=== PATIENT | male | born 1945 | race Caucasian/White ===

== ENCOUNTER 2019-02-03 15:28 | Emergency (ER) | payer OTHER, MEDICARE ==
[2019-02-03 15:51] VITALS: BP 136/62
--- NOTE | 2019-02-03 16:06 | ER Document Report ---
ED Medical Screen (RME) - General Chief Complaint: Testicular Swelling Stated Complaint: TESTICULAR PAIN Time Seen by Provider: 02/03/19 16:01 Primary Care Provider: SANCHO FROST PA [Primary Care Provider] - Follow up as needed Mode of Arrival: Ambulatory Information source: Patient Notes: 73-year-old male presented to ED for complaint of right testicular pain and swelling. He states he has had this pain for about 3 weeks but it is gotten worse. He went to the [place] [facility] today and they told him he had to come to the emergency right now to get this checked out that it was too brought back and swollen. The right testicle is about 3 times in size of the last. Patient is alert oriented respirations regular and unlabored speaking in full sentences. He states he is on pain medicine and blood pressure medicine as well as medicine for his anxiety and depression. I have greeted and performed a rapid initial assessment of this patient. A comprehensive ED assessment and evaluation of the patient, analysis of test results and completion of medical decision making process will be conducted by an additional ED providers. TRAVEL OUTSIDE OF THE [place] IN LAST 30 DAYS: No - Related Data Allergies/Adverse Reactions: milk [Milk] Allergy (Severe, Verified 02/03/19 15:41) wheat [Wheat] Allergy (Severe, Verified 02/03/19 15:41) Past Medical History - Past Medical History Cardiac Medical History: Reports: Hx Hypertension Denies: Hx Heart Attack Pulmonary Medical History: Denies: Hx Asthma Neurological Medical History: Denies: Hx Cerebrovascular Accident, Hx Seizures Renal/ Medical History: Denies: Hx Peritoneal Dialysis GI Medical History: Denies: Hx Hepatitis, Hx Hiatal Hernia, Hx Ulcer Psychiatric Medical History: Reports: Hx Anxiety, Hx Depression, Hx Post Traumatic Stress Disorder Infectious Medical History: Denies: Hx Hepatitis Past Surgical History: Reports: Hx Orthopedic Surgery. Denies: Hx Open Heart Surgery, Hx Pacemaker Physical Exam - Vital signs Vitals: Temp Pulse Resp BP Pulse Ox 97.6 F 61 14 136/62 H 100 02/03/19 15:50 02/03/19 15:50 02/03/19 15:50 02/03/19 15:50 02/03/19 15:50 Course - Vital Signs Vital signs: Temp Pulse Resp BP Pulse Ox 97.6 F 61 14 136/62 H 100 02/03/19 15:50 02/03/19 15:50 02/03/19 15:50 02/03/19 15:50 02/03/19 15:50 Doctor's Discharge - Discharge Referrals: SANCHO FROST PA [Primary Care Provider] - Follow up as needed
--- NOTE | 2019-02-03 18:33 | RADIOLOGY REPORT (SQ) ---
EXAM DESCRIPTION: U/S SCROTUM W/DOPPLER COMPLETED DATE/TIME: 02/03/2019 6:22 pm REASON FOR STUDY: Right scrotum 3 times the size of the left pain COMPARISON: None. TECHNIQUE: Static and realtime scott scale imaging of the scrotum and testes. Selected color Doppler and spectral images recorded to document blood flow. LIMITATIONS: None. FINDINGS: RIGHT: TESTICLE: Normal size. Normal echotexture. Normal blood flow. No mass. EPIDIDYMIS: Normal. HYDROCELE OR VARICOCELE: Large hydrocele. HERNIA OR EXTRA-TESTICULAR MASS: No. OTHER: No other significant finding. LEFT: TESTICLE: Normal size. Normal echotexture. Normal blood flow. No mass. EPIDIDYMIS: Normal. HYDROCELE OR VARICOCELE: Large hydrocele. HERNIA OR EXTRA-TESTICULAR MASS: No. OTHER: No other significant finding. IMPRESSION: Large bilateral hydroceles. TECHNICAL DOCUMENTATION: JOB ID: [id number] [employer]- All Rights Reserved Reading location - IP/workstation name: [email or web address]
[2019-02-03 19:11] LABS: APPEARANCE,URINE CLEAR; BILIRUBIN,URINE NEGATIVE (NEGATIVE); COLOR,URINE YELLOW; GLUCOSE, URINE NEGATIVE (NEGATIVE); KETONES,URINE NEGATIVE (NEGATIVE); LEUKOCYTE ESTERASE,URINE NEGATIVE (NEGATIVE); NITRITE,URINE NEGATIVE (NEGATIVE); PROTEIN,URINE NEGATIVE (NEGATIVE); URINE SPECIFIC GRAVITY 1.013; UROBILINOGEN,URINE NEGATIVE mg/dL (<2.0)
--- NOTE | 2019-02-03 19:23 | ER Document Report ---
Doctor's Note Notes: 02/03/19 19:22 I signed up to evaluate this patient. I did review this patient's chart, ultrasound results, and urinalysis. I was notified by nursing in the midst of evaluating this patient's work-up, that the patient was very upset about his weight. He stated that he could not drive after dark. He wanted to leave the department. I I asked that they tell him I would be with him in one moment, as I was discussing another patient. The patient told them he did not want to wait. He has no surgical emergency or sign of infection on his ultrasound. No overt signs of infection in his urine. I did not see, interview, nor personally examined the patient. He chose to leave AGAINST MEDICAL ADVICE prior to physician's evaluation.
== END 2019-02-03 19:27 | disposition left against medical advice (07) ==
LOC: ER 15:28
DX: N50.89 Other specified disorders of the male genital organs (principal); I10 Essential (primary) hypertension
CPT/HCPCS: 76870; 81001; 87086; 93976; 99284

== ENCOUNTER → 2019-10-22 | Outpatient (CLI) | payer OTHER ==
--- NOTE | 2019-10-22 15:23 | XCELERA REPORT ---
[address] [facility] [address] Lower Extremity Venous Evaluation Procedure: Color flow and duplex imaging bilaterally of the veins of the lower extremities as well as the Common Femoral veins. Right Sided Venous Evaluation Normal vessel filling wall to wall, compression and augmentation as well as Colour flow down to the infrageniculate veins. Left Sided Venous Evaluation Normal vessel filling wall to wall, compression and augmentation as well as Colour flow down to the infrageniculate veins. Interpretation Summary No duplex evidence of DVT or obstruction in the bilateral lower extremities. STAT Name: ANNA VACA Age: 74 yrs Gender: Male : 1945 Patient Status: Outpatient Patient Location: Study Date: 10/22/2019 01:44 PM Reason For Study: SWELLING Ordering Physician: CATHY CAMPOS Performed By: Rosa Gutierrez : CATHY CAMPOS > Karel Dumas
== END ==
LOC: SP 12:59
PROVIDERS: ATTEND Internal Medicine Hematology & Oncology
DX: C61 Malignant neoplasm of prostate (principal); R60.0 Localized edema
CPT/HCPCS: 93970

== ENCOUNTER 2019-12-06 18:31 | Inpatient (IN) | payer OTHER, MEDICARE ==
[2019-12-06 19:22] LABS: ABSOLUTE EOSINOPHILS # (AUTO) 0.2 10^3/uL (0.0-0.6); ABSOLUTE LYMPHOCYTES (AUTO) 1.2 10^3/uL (0.5-4.7); ABSOLUTE MONOCYTES (AUTO) 0.7 10^3/uL (0.1-1.4); ABSOLUTE NEUT (AUTO) 5.9 10^3/uL (1.7-8.2); BASOPHILS % (AUTO) 0.6 % (0-2); EOSINOPHILS % (AUTO) 2.9 % (0-6); HEMATOCRIT 35.5 % (37.9-51.0); HEMOGLOBIN 12.7 g/dL (13.5-17.0); LYMPHOCYTES % (AUTO) 14.5 % (13-45); MEAN CORPUSCULAR HEMOGLOBIN 30.4 pg (27.0-33.4); MEAN CORPUSCULAR HGB CONC 35.6 g/dL (32.0-36.0); MEAN CORPUSCULAR VOLUME 85 fl (80-97); MONOCYTES % (AUTO) 8.9 % (3-13); PLATELET COUNT 225 10^3/uL (150-450); RED BLOOD COUNT 4.17 10^6/uL (4.35-5.55); SEGMENTED NEUTROPHILS % (AUTO) 73.1 % (42-78); TOTAL CELLS COUNTED % (AUTO) 100 %; WHITE BLOOD COUNT 8.1 10^3/uL (4.0-10.5)
--- NOTE | 2019-12-06 19:43 | RADIOLOGY REPORT (SQ) ---
EXAM DESCRIPTION: CHEST SINGLE VIEW COMPLETED DATE/TIME: 12/06/2019 6:27 pm REASON FOR STUDY: Weakness COMPARISON: 01/09/2013 EXAM PARAMETERS: NUMBER OF VIEWS: One view. TECHNIQUE: Single frontal radiographic view of the chest acquired. RADIATION DOSE: NA LIMITATIONS: None. FINDINGS: LUNGS AND PLEURA: Patchy retrocardiac opacity at the left lung base. No pleural effusion or pneumothorax. Lungs are hyperinflated. MEDIASTINUM AND HILAR STRUCTURES: No masses. Contour normal. HEART AND VASCULAR STRUCTURES: Heart normal in size. Normal vasculature. BONES: Sclerotic appearance of the proximal right humeral neck may represent enchondroma. Postoperat jairo changes of the right clavicle. HARDWARE: None in the chest. OTHER: No other significant finding. IMPRESSION: Patchy opacity in the retrocardiac region left lower lobe may represent atelectasis or i nfectious/ inflammatory process. TECHNICAL DOCUMENTATION: JOB ID: [id number] [employer]- All Rights Reserved Reading location - IP/workstation name: [email or web address]
[2019-12-06 19:48] LABS: ALBUMIN 3.9 g/dL (3.5-5.0); ALKALINE PHOSPHATASE 114 U/L (38-126); ANION GAP 12 (5-19); ASPARTATE AMINO TRANSFERASE 22 U/L (17-59); BILIRUBIN,TOTAL 1.4 mg/dL (0.2-1.3); BLOOD UREA NITROGEN 22 mg/dL (7-20); CALCIUM 9.3 mg/dL (8.4-10.2); CARBON DIOXIDE 28 mmol/L (22-30); CHLORIDE 99 mmol/L (98-107); CREATINE KINASE 92 U/L (55-170); GLUCOSE 109 mg/dL (75-110); POTASSIUM 3.7 mmol/L (3.6-5.0); TOTAL PROTEIN 7.1 g/dL (6.3-8.2)
[2019-12-06 19:59] LABS: CREATINE KINASE MB 2.77 ng/mL (<4.55)
[2019-12-06 20:18] LABS: TROPONIN I 0.137 ng/mL
--- NOTE | 2019-12-06 21:32 | EKG REPORT ---
SEVERITY:- ABNORMAL ECG - SINUS TACHYCARDIA REPOLARIZATION ABNORMALITY, PROB RATE RELATED : Confirmed by: Chetan Rodrigues MD 06-Dec-2019 21:32:13
[2019-12-06 21:48] LABS: APPEARANCE,URINE CLOUDY; BILIRUBIN,URINE NEGATIVE (NEGATIVE); COLOR,URINE YELLOW; GLUCOSE, URINE NEGATIVE (NEGATIVE); KETONES,URINE NEGATIVE (NEGATIVE); LEUKOCYTE ESTERASE,URINE LARGE (NEGATIVE); NITRITE,URINE NEGATIVE (NEGATIVE); PROTEIN,URINE 30 mg/dL (NEGATIVE); URINE SPECIFIC GRAVITY 1.013; UROBILINOGEN,URINE NEGATIVE mg/dL (<2.0)
[2019-12-06] MEDS ORDERED: CEFTRIAXONE INJ 1000 MG VIAL IV ONE (22:08)
[2019-12-06] MEDS ORDERED: NORMAL SALINE 1000 ML 1,000 ML IV ONE (22:09)
--- NOTE | 2019-12-06 22:10 | ER Document Report ---
ED General - General Chief Complaint: General Weakness Stated Complaint: DEHYDRATION Time Seen by Provider: 12/06/19 18:40 Primary Care Provider: CATHY CAMPOS MD [Primary Care Provider] - Follow up as needed Notes: 74-year-old man presents to the emergency department with a history of weakness today apparently he fell when getting out of his car because he was weak. EMS was called to the scene earlier today and the patient refused to be transported. Apparently the EMS captain went to the home saw the patient and later called EMS back to transport him because he was having increased weakness and appeared to be dehydrated. The patient notes that he has been having some dysuria for approximately 1 week. He has an appointment scheduled with the outpatient [place] clinic on Saturday. He denies fever, chills, nausea vomiting or diarrhea. TRAVEL OUTSIDE OF THE [place] IN LAST 30 DAYS: No - Related Data Allergies/Adverse Reactions: milk [Milk] Allergy (Severe, Verified 02/03/19 15:41) wheat [Wheat] Allergy (Severe, Verified 02/03/19 15:41) Past Medical History - Social History Smoking Status: Never Smoker Family History: Reviewed & Not Pertinent, Other Patient has suicidal ideation: No Patient has homicidal ideation: No - Past Medical History Cardiac Medical History: Reports: Hx Hypertension Denies: Hx Heart Attack Pulmonary Medical History: Denies: Hx Asthma Neurological Medical History: Denies: Hx Cerebrovascular Accident, Hx Seizures Renal/ Medical History: Denies: Hx Peritoneal Dialysis GI Medical History: Denies: Hx Hepatitis, Hx Hiatal Hernia, Hx Ulcer Psychiatric Medical History: Reports: Hx Anxiety, Hx Depression, Hx Post Traumatic Stress Disorder Infectious Medical History: Denies: Hx Hepatitis Past Surgical History: Reports: Hx Orthopedic Surgery. Denies: Hx Open Heart Surgery, Hx Pacemaker Review of Systems - Review of Systems Notes: Constitutional: + Generalized weakness HENT: Negative for sore throat. Eyes: Negative for visual changes. Cardiovascular: Negative for chest pain. Respiratory: Negative for shortness of breath. Gastrointestinal: Negative for abdominal pain, vomiting or diarrhea. Genitourinary: + Dysuria. Musculoskeletal: Negative for back pain. Skin: Negative for rash. Neurological: Negative for headaches, weakness or numbness. 10 point ROS negative except as marked above and in HPI. Physical Exam - Vital signs Vitals: Resp Pulse Ox 14 99 12/06/19 18:44 12/06/19 18:44 - Notes Notes: PHYSICAL EXAMINATION: Physical Exam: General: Dry appearing 74-year-old man lips are parched with drying of the mucosa. HEENT: NC/AT, pupils equal round and reactive to light, MM moist,nares clear, oropharynx clear, airway patent Neck: supple, no adenopathy, no masses. Good range of motion Lungs: clear, no wheezing, no rales no rhonchi CVS: Regular rate and rhythm no murmur gallop or rub Abdomen: Soft, active, nontender, no masses, no hepatosplenomegaly Ext: No edema, clubbing or cyanosis. Neuro: Alert and responsive, moving all 4 extremities on command, cranial nerves intact, no focal findings Skin: Intact no open lesions, no rash PSYCH: Normal mood, normal affect. Course - Re-evaluation Re-evalutation: 12/06/19 22:12 I discussed patient's findings with him, UTI with urine which shows increased WBCs, large leukocyte esterase and trace bacteria. Coupled with his dysuria and weakness dehydration he is given IV fluids IV antibiotics and discussed admission to the hospital the patient's troponin was noted to be elevated at 0.125. Patient denies chest pain or symptoms of cardiac disease. blood 12/07/19 01:04 Discussed the patient with the hospitalist, Dr. Pearce, he will admit the patient to the hospital for further evaluation and treatment. Of note the patient troponin continued to rise on the second draw. I discussed with the patient our concerns regarding possible cardiac event. The patient notes he is not interested in being transferred to a another facility or having cardiac intervention. He is hopeful that he can be treated and discharged from the hospital[facility] 12/07/19 01:07 - Vital Signs Vital signs: Temp Pulse Resp BP Pulse Ox 97.7 F 21 H 87/50 L 95 12/06/19 19:15 12/07/19 00:01 12/07/19 00:01 12/07/19 00:01 - Laboratory Result Diagrams: 12/06/19 18:50 12/06/19 18:50 Laboratory results interpreted by me: 12/06/19 12/06/19 12/06/19 18:50 18:50 21:25 RBC 4.17 L Hgb 12.7 L Hct 35.5 L BUN 22 H Total Bilirubin 1.4 H Urine Protein 30 H Urine Blood SMALL H Ur Leukocyte Esterase LARGE H Discharge - Discharge Clinical Impression: Dehydration, Elevated troponin I level, Generalized weakness Urinary tract infection Qualifiers: Urinary tract infection type: site unspecified Hematuria presence: without hematuria Qualified Code(s): N39.0 - Urinary tract infection, site not specified Condition: Good Disposition: ADMITTED INPATIENT Admitting Provider: Portia (Hospitalist) Unit Admitted: Medical Floor Referrals: CATHY CAMPOS MD [Primary Care Provider] - Follow up as needed
[2019-12-07] MEDS ORDERED: ASPIRIN 81 MG TABLET, CHEWABLE PO ONE (00:44)
[2019-12-07] MEDS ORDERED: ENOXAPARIN SODIUM INJ 120 MG/0.8 ML DISP.SYRIN SUBCUT ONE (00:48)
[2019-12-07] MEDS ORDERED: PROMETHAZINE HCL INJ 25 MG/1 ML VIAL IV PRN (02:34)
[2019-12-07] MEDS ORDERED: NORMAL SALINE 1000 ML 1,000 ML IV PRN (02:34)
[2019-12-07] MEDS ORDERED: MAGNESIUM HYDROXIDE SUSP 30 ML UDCUP PO PRN (02:34)
[2019-12-07] MEDS ORDERED: ACETAMINOPHEN 325 MG TABLET PO PRN (02:34)
[2019-12-07] MEDS ORDERED: MAG HYDROX/AL HYDROX/SIMETH SUSP 30 ML UDCUP PO PRN (02:34)
--- NOTE | 2019-12-07 02:34 | PDOC H&P ---
History of Present Illness Admission Date/PCP: 12/07/19 01:14 CHIQUIS BOOTH Patient complains of: Weakness and dehydration History of Present Illness: ANNA VACA is a 74 year old male with a history of prostate cancer and hypertension who fell while getting out of his car today. He has had falls in the past resulting in multiple fractures including his back. He was recently diagnosed with prostate cancer. EMS was called and his evaluation in the emergency department was significant for a urinalysis suggestive of infection. He has a coccyx ulcer as well as a pressure area on the right heel. His cardiac enzymes are minimally elevated as well. He is quite weak and will be admitted for ongoing monitoring of his troponins, treatment of his ulcers and pressure areas and pain control. Past Medical History Cardiac Medical History: Reports: Hypertension Denies: Myocardial Infarction Pulmonary Medical History: Denies: Asthma Neurological Medical History: Denies: Seizures GI Medical History: Denies: Hepatitis, Hiatal Hernia Psychiatric Medical History: Reports: Depression, Post Traumatic Stress Disorder Hematology: Denies: Anemia, Sickle Cell Disease Past Surgical History Past Surgical History: Reports: Orthopedic Surgery Denies: Pacemaker Social History Information Source: Patient Lives with: Alone Smoking Status: Never Smoker Electronic Cigarette use?: No Frequency of Alcohol Use: None Hx Recreational Drug Use: No Hx Prescription Drug Abuse: No - Advance Directive Resuscitation Status: Full Code Family History Family History: Reviewed & Not Pertinent, Other Parental Family History Reviewed: Yes Children Family History Reviewed: Yes Sibling(s) Family History Reviewed.: Yes Medication/Allergy Home Medications: Acetaminophen with Codeine [Tylenol #3 Tablet] 1 each PO PRN 06/26/12 Alprazolam [Xanax 0.5 Mg Tablet] 0.5 mg PO PRN 06/26/12 Herbal Meds 06/26/12 Diazepam [Valium 5 mg Tablet] 5 mg PO QIDP PRN #12 tablet 03/10/16 Hydrocodone/Acetaminophen [[place] 5-325 mg Tablet] 1 tab PO Q6HP PRN #12 tablet 03/10/16 Allergies/Adverse Reactions: milk [Milk] Allergy (Severe, Verified 02/03/19 15:41) wheat [Wheat] Allergy (Severe, Verified 02/03/19 15:41) Review of Systems All systems: reviewed and no additional remarkable complaints except as stated Ears: PRESENT: hearing changes Cardiovascular: PRESENT: edema Genitourinary: PRESENT: dysuria Integumentary: PRESENT: other - Coccyx and right heel Neurological: PRESENT: weakness Physical Exam Vital Signs: Temp Pulse Resp BP Pulse Ox 97.7 F 21 H 87/50 L 95 12/06/19 19:15 12/07/19 00:01 12/07/19 00:01 12/07/19 00:01 Intake & Output 12/05/19 12/06/19 12/07/19 05:59 06:59 06:59 Intake Total 1000 Balance 1000 Weight 117.027 kg General appearance: PRESENT: cooperative, mild distress, well-developed Head exam: PRESENT: atraumatic, normocephalic Eye exam: PRESENT: conjunctiva pink, EOMI. ABSENT: scleral icterus Ear exam: PRESENT: normal external ear exam, other - Hearing aids. ABSENT: bleeding, drainage Mouth exam: PRESENT: dry mucosa, tongue midline Neck exam: ABSENT: carotid bruit, JVD, lymphadenopathy Respiratory exam: PRESENT: clear to auscultation [place], symmetrical, unlabored. ABSENT: accessory muscle use, prolonged expiratory phas, rales, rhonchi, tachypnea, wheezes Cardiovascular exam: PRESENT: RRR, +S1, +S2, systolic murmur - 1/6 GI/Abdominal exam: PRESENT: normal bowel sounds, soft. ABSENT: distended, g uarding, mass, tenderness Rectal exam: PRESENT: deferred Gentrourinary exam: ABSENT: indwelling catheter Extremities exam: PRESENT: pedal edema, +2 edema Musculoskeletal exam: PRESENT: other - Edema bilateral legs. ABSENT: deformity Neurological exam: PRESENT: alert, awake, oriented to person, oriented to place, oriented to time, oriented to situation, CN II-XII grossly intact - Except hearing loss Psychiatric exam: PRESENT: anxious, appropriate affect. ABSENT: agitated Focused psych exam: ABSENT: delusional, paranoid, restlessness Skin exam: PRESENT: vesicles - Bullous lesion from pressure right heel, other - Coccyx ulcer Results Laboratory Results: 12/06/19 18:50 12/06/19 18:50 12/06/19 12/06/19 12/06/19 18:50 18:50 21:25 WBC 8.1 RBC 4.17 L Hgb 12.7 L Hct 35.5 L MCV 85 MCH 30.4 MCHC 35.6 RDW 14.0 Plt Count 225 Seg Neutrophils % 73.1 Sodium 138.8 Potassium 3.7 Chloride 99 Carbon Dioxide 28 Anion Gap 12 BUN 22 H Creatinine 1.02 Est GFR ( Amer) > 60 Glucose 109 Calcium 9.3 Total Bilirubin 1.4 H AST 22 Alkaline Phosphatase 114 Total Protein 7.1 Albumin 3.9 Urine Color YELLOW Urine Appearance CLOUDY Urine pH 8.0 Ur Specific [place] 1.013 Urine Protein 30 H Urine Glucose (UA) NEGATIVE Urine Ketones NEGATIVE Urine Blood SMALL H Urine Nitrite NEGATIVE Ur Leukocyte Esterase LARGE H Urine WBC (Auto) 88 Urine RBC (Auto) 2 12/06/19 12/06/19 12/06/19 18:50 18:50 22:46 Creatine Kinase 92 CK-MB (CK-2) 2.77 Troponin I 0.137 0.280 Impressions: Chest X-Ray 12/06/19 18:50 IMPRESSION: Patchy opacity in the retrocardiac region left lower lobe may represent atelectasis or infectious/ inflammatory process. Assessment and Plan - Diagnosis (1) Urinary tract infection Qualifiers: Urinary tract infection type: site unspecified Hematuria presence: without hematuria Qualified Code(s): N39.0 - Urinary tract infection, site not specif ied Is this a current diagnosis for this admission?: Yes Plan: 12/07/2019 Urine submitted for culture. Broad-spectrum antibiotics ordered. (2) Pressure ulcer of coccygeal region Qualifiers: Pressure injury stage: unspecified pressure injury stage Qualified Code(s): L89.159 - Pressure ulcer of sacral region, unspecified stage Is this a current diagnosis for this admission?: Yes Plan: 12/07/2019 Did not get a very good look at the coccyx ulcer. I have asked that the wound care center be contacted to come and assess the coccyx area and the right heel. We will need to offload him frequently. (3) Pressure ulcer of right heel, unstageable Is this a current diagnosis for this admission?: Yes Plan: 12/07/2019 The patient has a classic blister on the heel with dark fluid consistent with a pressure injury. I will defer to the wound care team as to whether we should unroofed the area and trim the callused skin which will give us access to the wo und bed and likely more options for treatment versus conservative therapy. I have asked him to elevate his right leg when possible. (4) Lower extremity edema Is this a current diagnosis for this admission?: Yes Plan: 12/07/2019 This has been chronic. [facility] states that they have order him compression stockings in a machine to help with the edema. (5) Hypertension Qualifiers: Hypertension type: essential hypertension Qualified Code(s): I10 - Essential (primary) hypertension Is this a current diagnosis for this admission?: Yes Plan: 12/07/2019 Blood pressure was actually on the low side initially. This is likely due to some dehydration and poor intake. Will order antihypertensive medications from his home regimen with parameters. (6) Prostate cancer Is this a current diagnosis for this admission?: Yes Plan: 12/07/2019 Continue Zytiga and Flomax (7) Depression Qualifiers: Depression Type: major depressive disorder Psychotic features: without psychotic features Is this a current diagnosis for this admission?: Yes Plan: 12/07/2019 Continue Prozac as well as the as needed Zyprexa. (8) Dehydration Is this a current diagnosis for this admission?: Yes Plan: 12/07/2019 We will give IV fluids gently. We will also encourage p.o. liquids. (9) Elevated troponin I level Is this a current diagnosis for this admission?: Yes Plan: 06/01/2020 Continue to track troponins. It is certainly possible that these are related to the heart muscle but he has never had any cardiac issues. We will continue to monitor the patient on telemetry as well. (10) Generalized weakness Is this a current diagnosis for this admission?: Yes Plan: 12/07/2019 Secondary to infection and poor volume intake. IV fluids, control of his pain and the antibiotics should help. I did ask physical therapy to see the patient as well. - Time Time Spent with patient: 35 or more minutes Medications reviewed and adjusted accordingly: Yes Anticipated discharge: Other - He may need home health with therapy and to assist with the wound care. - Inpatient Certification Based on my medical assessment, after consideration of the patient's comorbidities, presenting symptoms, or acuity I expect that the services needed warrant INPATIENT care.: Yes I certify that my determination is in accordance with my understanding of Medicare's requirements for reasonable and necessary INPATIENT services [42 CFR 412.3e].: Yes Medical Necessity: Need For IV Fluids, Need For Continuous Telemetry Monitoring, Need for IV Antibiotics Post Hospital Care: D/C Nurse Navigator Documentation
[2019-12-07] MEDS ORDERED: METHOCARBAMOL 500 MG TABLET PO PRN (02:41)
[2019-12-07] MEDS ORDERED: OLANZAPINE 2.5 MG TABLET PO PRN ×2 (02:41→10:24)
[2019-12-07] MEDS ORDERED: PHARMACY COMMUNICATION ORDER MC NR (03:00)
[2019-12-07] MEDS ORDERED: DIAZEPAM 5 MG TABLET PO PRN (03:57)
[2019-12-07] MEDS ORDERED: MORPHINE SULFATE 10 MG/ML INJ IV PRN (03:57)
[2019-12-07] MEDS ORDERED: MORPHINE SULFATE 10 MG/ML INJ IV ONE (05:00)
[2019-12-07] MEDS: OXYCODONE HCL IR 5 MG TABLET PO PRN (05:02)
[2019-12-07] MEDS: PANTOPRAZOLE SODIUM 20 MG TABLET.DR PO SCH (07:41)
[2019-12-07] MEDS ORDERED: POTASSIUM CHLORIDE 10 MEQ TABLET.ER PO ONE (09:30)
[2019-12-07 10:42] LABS: ANION GAP 6 (5-19); BLOOD UREA NITROGEN 17 mg/dL (7-20); CALCIUM 8.3 mg/dL (8.4-10.2); CARBON DIOXIDE 30 mmol/L (22-30); CHLORIDE 104 mmol/L (98-107); GLUCOSE 84 mg/dL (75-110); POTASSIUM 3.2 mmol/L (3.6-5.0)
[2019-12-07] MEDS: CHOLECALCIFEROL (D3) 1,000 UNIT (25 MCG) TABLET PO SCH (11:10)
[2019-12-07] MEDS: METOPROLOL SUCCINATE 25 MG TAB.SR.24H PO SCH (11:10)
[2019-12-07] MEDS: FUROSEMIDE 40 MG TABLET PO SCH (11:10)
[2019-12-07] MEDS: HYDROCHLOROTHIAZIDE 25 MG TABLET PO SCH (11:11)
[2019-12-07] MEDS: FLUOXETINE HCL 20 MG CAPSULE PO SCH (11:11)
[2019-12-07] MEDS: DOCUSATE SODIUM 100 MG CAPSULE PO SCH ×2 (11:11→17:23)
[2019-12-07] MEDS: PREDNISONE 5 MG TABLET PO SCH (11:11)
[2019-12-07] MEDS: ENOXAPARIN SODIUM INJ 40 MG/0.4 ML DISP.SYRIN SUBCUT SCH (11:11)
[2019-12-07] MEDS ORDERED: INFLUENZA QUAD (6MOS+) 2019-20 VAC 0.5 ML SYR IM ONE (12:01)
[2019-12-07] MEDS: TAMSULOSIN HCL 0.4 MG CAP.SR.24H PO SCH (17:23)
[2019-12-07] MEDS: CEFTRIAXONE 1 GM/D5W RTU 1 GM/50 ML RTUPB IV SCH (21:45)
[2019-12-07] MEDS: MELATONIN 5 MG TABLET PO SCH (21:45)
[2019-12-08] MEDS: OXYCODONE HCL IR 5 MG TABLET PO PRN ×2 (03:05→16:27)
[2019-12-08] MEDS: PANTOPRAZOLE SODIUM 20 MG TABLET.DR PO SCH (05:42)
[2019-12-08] MEDS: HYDROCHLOROTHIAZIDE 25 MG TABLET PO SCH (09:56)
[2019-12-08] MEDS: FLUOXETINE HCL 20 MG CAPSULE PO SCH (09:57)
[2019-12-08] MEDS: METOPROLOL SUCCINATE 25 MG TAB.SR.24H PO SCH (09:57)
[2019-12-08] MEDS: DOCUSATE SODIUM 100 MG CAPSULE PO SCH ×2 (09:57→17:09)
[2019-12-08] MEDS: CHOLECALCIFEROL (D3) 1,000 UNIT (25 MCG) TABLET PO SCH (09:57)
[2019-12-08] MEDS: FUROSEMIDE 40 MG TABLET PO SCH (09:58)
[2019-12-08] MEDS: PREDNISONE 5 MG TABLET PO SCH (09:58)
[2019-12-08] MEDS: ENOXAPARIN SODIUM INJ 40 MG/0.4 ML DISP.SYRIN SUBCUT SCH (09:58)
[2019-12-08] MEDS: TAMSULOSIN HCL 0.4 MG CAP.SR.24H PO SCH (17:09)
--- NOTE | 2019-12-08 20:00 | PDOC PROGRESS REPORT ---
Subjective Reason For Visit: DEHYDRATION,URINARY TRACT INFECTION,RIGHT HEEL Physical Exam Vital Signs: Temp Pulse Resp BP Pulse Ox 98.5 F 58 L 14 130/60 H 100 12/08/19 16:18 12/08/19 16:18 12/08/19 16:18 12/08/19 16:18 12/08/19 16:18 Intake & Output 12/07/19 12/08/19 12/09/19 06:59 06:59 06:59 Intake Total 1000 1130 530 Output Total 1050 600 Balance 1000 80 -70 Weight 113.3 kg 113.3 kg Results Laboratory Results: 12/06/19 18:50 12/07/19 09:40 12/06/19 12/06/19 12/06/19 18:50 18:50 22:46 Creatine Kinase 92 CK-MB (CK-2) 2.77 Troponin I 0.137 0.280 12/07/19 02:52 Creatine Kinase CK-MB (CK-2) Troponin I 0.475 Impressions: Chest X-Ray 12/06/19 18:50 IMPRESSION: Patchy opacity in the retrocardiac region left lower lobe may represent atelectasis or infectious/ inflammatory process. Assessment and Plan - Diagnosis (1) Dehydration Is this a current diagnosis for this admission?: Yes Plan: Resolved (2) Pressure ulcer of coccygeal region Qualifiers: Pressure injury stage: unspecified pressure injury stage Qualified Code(s): L89.159 - Pressure ulcer of sacral region, unspecified stage Is this a current diagnosis for this admission?: Yes Plan: We will give him a referral to the wound center as an outpatient (3) Pressure ulcer of right heel, unstageable Is this a current diagnosis for this admission?: Yes Plan: This actually looks more like a large bruise on his heel, there is no overlying eschar that I saw, it almost looks like he stepped on something and bruised it (4) Prostate cancer Is this a current diagnosis for this admission?: Yes Plan: 12/07/2019 Continue Zytiga and Flomax (5) Urinary tract infection Qualifiers: Urinary tract infection type: site unspecified Hematuria presence: without hematuria Qualified Code(s): N39.0 - Urinary tract infection, site not specified Is this a current diagnosis for this admission?: Yes Plan: Currently on Rocephin, urine culture is pending. Once we get the susceptibilities we may be able to discharge him home. - Time Time Spent with patient: 15-24 minutes
[2019-12-08] MEDS: ZYTIGA PO SCH (20:19)
[2019-12-08] MEDS: MELATONIN 5 MG TABLET PO SCH (21:34)
[2019-12-08] MEDS: CEFTRIAXONE 1 GM/D5W RTU 1 GM/50 ML RTUPB IV SCH (21:34)
[2019-12-09] MEDS: PANTOPRAZOLE SODIUM 20 MG TABLET.DR PO SCH (06:10)
[2019-12-09] MEDS: OXYCODONE HCL IR 5 MG TABLET PO PRN (07:55)
[2019-12-09] MEDS: DOCUSATE SODIUM 100 MG CAPSULE PO SCH (10:02)
[2019-12-09] MEDS: ZYTIGA PO SCH (10:02)
[2019-12-09] MEDS: FLUOXETINE HCL 20 MG CAPSULE PO SCH (10:02)
[2019-12-09] MEDS: METOPROLOL SUCCINATE 25 MG TAB.SR.24H PO SCH (10:03)
[2019-12-09] MEDS: PREDNISONE 5 MG TABLET PO SCH (10:03)
[2019-12-09] MEDS: HYDROCHLOROTHIAZIDE 25 MG TABLET PO SCH (10:03)
[2019-12-09] MEDS: FUROSEMIDE 40 MG TABLET PO SCH (10:04)
[2019-12-09] MEDS: CHOLECALCIFEROL (D3) 1,000 UNIT (25 MCG) TABLET PO SCH (10:04)
[2019-12-09] MEDS: ENOXAPARIN SODIUM INJ 40 MG/0.4 ML DISP.SYRIN SUBCUT SCH (10:05)
[2019-12-09 10:16] VITALS: BP 143/53
--- NOTE | 2019-12-09 19:01 | PDOC DISCHARGE SUMMARY ---
Impression - Admit/DC Date/PCP Admission Date/Primary Care Provider: 12/07/19 01:14 CHIQUIS BOOTH Discharge Date: 12/09/19 - Discharge Diagnosis (1) Dehydration Is this a current diagnosis for this admission?: Yes (2) Pressure ulcer of coccygeal region Is this a current diagnosis for this admission?: Yes (3) Pressure ulcer of right heel, unstageable Is this a current diagnosis for this admission?: Yes (4) Prostate cancer Is this a current diagnosis for this admission?: Yes (5) Urinary tract infection Is this a current diagnosis for this admission?: Yes - Additional Information Resuscitation Status: Full Code Discharge Diet: Cardiac Discharge Activity: Balance Activity w/Rest, Supervised Activity Referrals: WOUND CARE [Outside] (PT NEEDS A REFERRAL TO THE WOUND CARE CLINIC FOR NEXT WEEK) CLINIC,[facility] [NO LOCAL MD] - 12/09/19 11:30 am (PT NEEDS REFERRAL FOR THE WOUND CARE CLINIC PT HAS MULTIPLE APPTS DECEMBER 09 2019 @ [address] [place] [address] ) Prescriptions: Cephalexin Monohydrate [Keflex 500 mg Capsule] 500 mg PO TID #21 capsule Home Medications: Abiraterone Acetate [Zytiga] 1,000 mg PO DAILY 12/07/19 Cholecalciferol (Vitamin D3) [Vitamin D3 1000 Unit Tablet] 1,000 unit PO DAILY 12/07/19 Fluoxetine HCl [Prozac 20 mg Capsule] 40 mg PO DAILY 12/07/19 Furosemide [Lasix 40 mg Tablet] 40 mg PO DAILY 12/07/19 Melatonin/Pyridoxine [Melatonin 5 mg Tablet] 5 mg PO QHS 12/07/19 Methocarbamol [Robaxin 500 mg Tablet] 500 mg PO TIDP PRN 12/07/19 Metoprolol Succinate [Toprol Xl 25 mg Tab.sr] 12.5 mg PO DAILY 12/07/19 Olanzapine [Zyprexa] 1.25 mg PO BIDP PRN 12/07/19 Omeprazole 20 mg PO DAILY 12/07/19 Prednisone [Deltasone 5 mg Tablet] 5 mg PO DAILY 12/07/19 Sennosides/Docusate Sodium [Senna Plus 8.6-50 mg Tablet] 2 each PO DAILYP PRN 12/07/19 Tamsulosin HCl [Flomax] 0.4 mg PO DAILY 12/07/19 Cephalexin Monohydrate [Keflex 500 mg Capsule] 500 mg PO TID #21 capsule 12/09/19 History of Present Illiness History of Present Illness: ANNA VACA is a 74 year old male with a history of prostate cancer and hypertension who fell while getting out of his car today. He has had falls in the past resulting in multiple fractures including his back. He was recently diagnosed with prostate cancer. EMS was called and his evaluation in the emergency department was significant for a urinalysis suggestive of infection. He has a coccyx ulcer as well as a pressure area on the right heel. His cardiac enzymes are minimally elevated as well. He is quite weak and will be admitted for ongoing monitoring of his troponins, treatment of his ulcers and pressure areas and pain control. Hospital Course Hospital Course: He improved with some antibiotics and a little bit of IV fluids. He tends to retain fluid so we were cautious with his hydration. He was eating and drinking better. He is going to follow-up with the wound clinic for the wound on his sacrum. The wound on his right heel is either a suspected deep tissue injury, or it looks like it could be an old bruise from where he may have stepped on something. He does deny having stepped on something that really hurt his heel. He will complete outpatient course of Keflex. He was refusing all nursing facility placement but he would let us do home health. We also encouraged him to use a walker but he did not want to use it. He has a stick that he made himself that he tries to get around with but we did strongly encouraged him to use the walker. His labs and examination were reassuring he was discharged in stable condition. Physical Exam Vital Signs: Temp Pulse Resp BP Pulse Ox 98.5 F 84 19 143/53 H 96 12/09/19 10:10 12/09/19 10:10 12/09/19 10:10 12/09/19 10:10 12/09/19 10:10 Intake & Output 12/08/19 12/09/19 12/10/19 06:59 06:59 06:59 Intake Total 1130 730 50 Output Total 1050 600 Balance 80 130 50 Weight 113.3 kg 115.5 kg General appearance: PRESENT: cooperative, mild distress, well-developed Respiratory exam: PRESENT: clear to auscultation namrata, symmetrical, unlabored. ABSENT: accessory muscle use, prolonged expiratory phas, rales, rhonchi, tachypnea, wheezes Cardiovascular exam: PRESENT: RRR, +S1, +S2, systolic murmur - 1/6 GI/Abdominal exam: PRESENT: normal bowel sounds, soft. ABSENT: distended, guarding, mass, tenderness Gentrourinary exam: ABSENT: indwelling catheter Extremities exam: PRESENT: pedal edema, +2 edema Musculoskeletal exam: PRESENT: other - Edema bilateral legs. ABSENT: deformity Neurological exam: PRESENT: alert, awake, oriented to person, oriented to place, oriented to time, oriented to situation Psychiatric exam: PRESENT: Appropriate affect Skin exam: PRESENT: vesicles - Bullous lesion from pressure right heel, other - Coccyx ulcer Results Laboratory Results: WBC 8.1 10^3/uL (4.0-10.5) 12/06/19 18:50 RBC 4.17 10^6/uL (4.35-5.55) L 12/06/19 18:50 Hgb 12.7 g/dL (13.5-17.0) L 12/06/19 18:50 Hct 35.5 % (37.9-51.0) L 12/06/19 18:50 MCV 85 fl (80-97) 12/06/19 18:50 MCH 30.4 pg (27.0-33.4) 12/06/19 18:50 MCHC 35.6 g/dL (32.0-36.0) 12/06/19 18:50 RDW 14.0 % (11.5-14.0) 12/06/19 18:50 Plt Count 225 10^3/uL (150-450) 12/06/19 18:50 Lymph % (Auto) 14.5 % (13-45) 12/06/19 18:50 [place] % (Auto) 8.9 % (3-13) 12/06/19 18:50 Eos % (Auto) 2.9 % (0-6) 12/06/19 18:50 Baso % (Auto) 0.6 % (0-2) 12/06/19 18:50 Absolute Neuts (auto) 5.9 10^3/uL (1.7-8.2) 12/06/19 18:50 Absolute Lymphs (auto) 1.2 10^3/uL (0.5-4.7) 12/06/19 18:50 Absolute Monos (auto) 0.7 10^3/uL (0.1-1.4) 12/06/19 18:50 Absolute Eos (auto) 0.2 10^3/uL (0.0-0.6) 12/06/19 18:50 Absolute Basos (auto) 0.0 10^3/uL (0.0-0.2) 12/06/19 18:50 Seg Neutrophils % 73.1 % (42-78) 12/06/19 18:50 Sodium 139.6 mmol/L (137-145) 12/07/19 09:40 Potassium 3.2 mmol/L (3.6-5.0) L 12/07/19 09:40 Chloride 104 mmol/L (98-107) 12/07/19 09:40 Carbon Dioxide 30 mmol/L (22-30) 12/07/19 09:40 Anion Gap 6 (5-19) 12/07/19 09:40 BUN 17 mg/dL (7-20) 12/07/19 09:40 Creatinine 0.70 mg/dL (0.52-1.25) 12/07/19 09:40 Est GFR ( Amer) > 60 (>60) 12/07/19 09:40 Est GFR (MDRD) Non-Af > 60 (>60) 12/07/19 09:40 Glucose 84 mg/dL (75-110) 12/07/19 09:40 Calcium 8.3 mg/dL (8.4-10.2) L 12/07/19 09:40 Total Bilirubin 1.4 mg/dL (0.2-1.3) H 12/06/19 18:50 Direct Bilirubin 0.0 mg/dL (0.0-0.4) 12/06/19 18:50 Neonat Total Bilirubin Not Reportable 12/06/19 18:50 Neonat Direct Bilirubin Not Reportable 12/06/19 18:50 Neonat Indirect Bili Not Reportable 12/06/19 18:50 AST 22 U/L (17-59) 12/06/19 18:50 ALT 15 U/L (<50) 12/06/19 18:50 Alkaline Phosphatase 114 U/L (38-126) 12/06/19 18:50 Creatine Kinase 92 U/L (55-170) 12/06/19 18:50 CK-MB (CK-2) 2.77 ng/mL (<4.55) 12/06/19 18:50 Troponin I 0.475 ng/mL 12/07/19 02:52 Total Protein 7.1 g/dL (6.3-8.2) 12/06/19 18:50 Albumin 3.9 g/dL (3.5-5.0) 12/06/19 18:50 Urine Color YELLOW 12/06/19 21:25 Urine Appearance CLOUDY 12/06/19 21:25 Urine pH 8.0 (5.0-9.0) 12/06/19 21:25 Ur Specific [place] 1.013 12/06/19 21:25 Urine Protein 30 mg/dL (NEGATIVE) H 12/06/19 21:25 Urine Glucose (UA) NEGATIVE mg/dL (NEGATIVE) 12/06/19 21:25 Urine Ketones NEGATIVE mg/dL (NEGATIVE) 12/06/19 21:25 Urine Blood SMALL (NEGATIVE) H 12/06/19 21:25 Urine Nitrite NEGATIVE (NEGATIVE) 12/06/19 21:25 Urine Bilirubin NEGATIVE (NEGATIVE) 12/06/19 21:25 Urine Urobilinogen NEGATIVE mg/dL (<2.0) 12/06/19 21:25 Ur Leukocyte Esterase LARGE (NEGATIVE) H 12/06/19 21:25 Urine WBC (Auto) 88 /HPF 12/06/19 21:25 Urine RBC (Auto) 2 /HPF 12/06/19 21:25 Urine Bacteria (Auto) TRACE /HPF 12/06/19 21:25 Squamous Epi Cells Auto <1 /HPF 12/06/19 21:25 Urine Mucus (Auto) RARE /LPF 12/06/19 21:25 Urine Ascorbic Acid NEGATIVE (NEGATIVE) 12/06/19 21:25 12/06/19 12/06/19 12/07/19 18:50 22:46 02:52 CK-MB (CK-2) 2.77 Troponin I 0.137 0.280 0.475 Impressions: Chest X-Ray 12/06/19 18:50 IMPRESSION: Patchy opacity in the retrocardiac region left lower lobe may represent atelectasis or infectious/ inflammatory process. Plan Time Spent: Greater than 30 Minutes Stroke Is this a Stroke Patient?: No Acute Heart Failure - Is this a Heart Failure Patient?: No
== END 2019-12-09 11:05 | disposition home health service (06) | DRG 690 ==
LOC: ER 18:31 → EH 12-07 01:14 → 5 12-07 03:43
PROVIDERS: ADMIT Hospitalist; ATTEND Hospitalist
DX: N39.0 Urinary tract infection, site not specified (principal); E86.0 Dehydration; L89.159 Pressure ulcer of sacral region, unspecified stage; L89.619 Pressure ulcer of right heel, unspecified stage; R79.89 Other specified abnormal findings of blood chemistry; C61 Malignant neoplasm of prostate; I10 Essential (primary) hypertension; R53.1 Weakness; F41.8 Other specified anxiety disorders; Z60.2 Problems related to living alone
CPT/HCPCS: 36415; 71045; 80048; 80053; 81001; 82550; 82553; 84484; 85025; 87040; 87086; 87088; 87186; 93005; 93010; 96361; 96365; 99285; J0696; J1650; J2270; J3490; J7030; J7512

== ENCOUNTER → 2020-03-09 | Outpatient (CLI) | payer MEDICARE ==
--- NOTE | 2020-03-09 19:16 | RADIOLOGY REPORT (SQ) ---
EXAM DESCRIPTION: VENOUS BILATERAL LOWER IMAGES COMPLETED DATE/TIME: 03/09/2020 6:39 pm REASON FOR STUDY: BLE PAIN/SWELLING PER GAVEL L97.828 NON-PRS CHRONIC ULCER OTH PRT L LOW LEG WITH OTH SEV L97.818 NON-PRS CHRONIC ULCER OTH PRT R LOW LEG WITH OTH SEV COMPARISON: None. TECHNIQUE: Dynamic and static scott scale and color images acquired of both lower extremity venous sy stems. Selected spectral images acquired with additional compression and augmentation maneuvers. Imag es stored on PACS. LIMITATIONS: None. FINDINGS: RIGHT LEG COMMON FEMORAL AND FEMORAL: Normal phasicity, compression and augmentation. No visualized echogenic m aterial on scott scale. No defects on color images. POPLITEAL: Normal compression and augmentation. No visualized echogenic material on scott scale. No de fects on color images. CALF VESSELS: Normal compression and augmentation. No visualized echogenic material on scott scale. No defects on color image. Peroneal veins not seen. GSV AND SSV: Normal compression. No visualized echogenic material on scott scale. No defects on color images. ANY DEEP VENOUS INSUFFICIENCY: Not evaluated. ANY EVIDENCE OF POPLITEAL CYST: No. OTHER: No other significant finding. LEFT LEG COMMON FEMORAL AND FEMORAL: Normal phasicity, compression and augmentation. No visualized echogenic m aterial on scott scale. No defects on color images. POPLITEAL: Normal compression and augmentation. No visualized echogenic material on scott scale. No de fects on color images. CALF VESSELS: Normal compression and augmentation. No visualized echogenic material on scott scale. No defects on color images. Peroneal veins not seen. GSV AND SSV: Normal compression. No visualized echogenic material on scott scale. No defects on color images. ANY DEEP VENOUS INSUFFICIENCY: Not evaluated. ANY EVIDENCE POPLITEAL CYST: No. OTHER: No other significant finding. IMPRESSION: NO EVIDENCE DVT OR SVT IN EITHER LEG. TECHNICAL DOCUMENTATION: JOB ID: [id number] 2010 [employer]- All Rights Reserved Reading location - IP/workstation name: [email or web address]
== END ==
LOC: SP 15:48
PROVIDERS: ATTEND Nurse Practitioner Family
DX: L97.222 Non-pressure chronic ulcer of left calf with fat layer exposed (principal); L97.212 Non-pressure chronic ulcer of right calf with fat layer exposed
CPT/HCPCS: 93970

== ENCOUNTER 2020-06-28 16:09 | Inpatient (IN) | payer OTHER, MEDICARE ==
[2020-06-28 17:16] LABS: VENOUS BLOOD BASE EXCESS 7.1 mmol/L; VENOUS BLOOD HCO3 34.2 mmol/L (20-32); VENOUS BLOOD PH 7.4 (7.30-7.42)
[2020-06-28 17:24] LABS: ABSOLUTE EOSINOPHILS # (AUTO) 0.6 10^3/uL (0.0-0.6); ABSOLUTE LYMPHOCYTES (AUTO) 1.4 10^3/uL (0.5-4.7); ABSOLUTE MONOCYTES (AUTO) 0.5 10^3/uL (0.1-1.4); ABSOLUTE NEUT (AUTO) 3.4 10^3/uL (1.7-8.2); BASOPHILS % (AUTO) 0.5 % (0-2); HEMATOCRIT 36.9 % (37.9-51.0); HEMOGLOBIN 12.9 g/dL (13.5-17.0); LYMPHOCYTES % (AUTO) 23.1 % (13-45); MEAN CORPUSCULAR HEMOGLOBIN 29.6 pg (27.0-33.4); MEAN CORPUSCULAR VOLUME 85 fl (80-97); MONOCYTES % (AUTO) 8.6 % (3-13); PLATELET COUNT 228 10^3/uL (150-450); RED BLOOD COUNT 4.36 10^6/uL (4.35-5.55); RED CELL DISTRIBUTION WIDTH 14.8 % (11.5-14.0); SEGMENTED NEUTROPHILS % (AUTO) 57.8 % (42-78); TOTAL CELLS COUNTED % (AUTO) 100 %
[2020-06-28 17:38] LABS: ALBUMIN 3.8 g/dL (3.5-5.0); ALKALINE PHOSPHATASE 115 U/L (38-126); ANION GAP 8 (5-19); ASPARTATE AMINO TRANSFERASE 32 U/L (17-59); BILIRUBIN,DIRECT 0.3 mg/dL (0.0-0.4); BILIRUBIN,TOTAL 1.4 mg/dL (0.2-1.3); BLOOD UREA NITROGEN 18 mg/dL (7-20); CALCIUM 9.1 mg/dL (8.4-10.2); CARBON DIOXIDE 33 mmol/L (22-30); CHLORIDE 99 mmol/L (98-107); GLUCOSE 101 mg/dL (75-110); POTASSIUM 3.6 mmol/L (3.6-5.0); TOTAL PROTEIN 7.2 g/dL (6.3-8.2)
--- NOTE | 2020-06-28 17:38 | RADIOLOGY REPORT (SQ) ---
EXAM DESCRIPTION: CHEST SINGLE VIEW IMAGES COMPLETED DATE/TIME: 06/28/2020 5:17 pm REASON FOR STUDY: wheezing COMPARISON: 12/06/2019 EXAM PARAMETERS: NUMBER OF VIEWS: One view. TECHNIQUE: Single frontal radiographic view of the chest acquired. RADIATION DOSE: NA LIMITATIONS: None. FINDINGS: LUNGS AND PLEURA: Left lower lobe airspace opacities. No pleural effusion. No pneumothor ax. MEDIASTINUM AND HILAR STRUCTURES: No masses. Contour normal. HEART AND VASCULAR STRUCTURES: Heart normal in size. Normal vasculature. BONES: No acute findings. HARDWARE: None in the chest. OTHER: No other significant finding. IMPRESSION: In the appropriate clinical setting, findings are consistent with left lower lobe pneumo maren. TECHNICAL DOCUMENTATION: JOB ID: [id number] 2010 [employer]- All Rights Reserved Reading location - IP/workstation name: [email or web address]
--- NOTE | 2020-06-28 17:41 | RADIOLOGY REPORT (SQ) ---
EXAM DESCRIPTION: CT HEAD WITHOUT IMAGES COMPLETED DATE/TIME: 06/28/2020 5:17 pm REASON FOR STUDY: weakness le COMPARISON: None. TECHNIQUE: Axial images acquired through the brain without intravenous contrast. Images reviewed wi th bone, brain and subdural windows. Additional sagittal and coronal reconstructions were generated. Images stored on PACS. All CT scanners at this facility use dose modulation, iterative reconstruction, and/or weight based d osing when appropriate to reduce radiation dose to as low as reasonably achievable (ALARA). [facility]: Dose Right [facility]: CareDose [facility]: Dose Right [facility]: Teradose 4D [facility]: Smart Kiveda RADIATION DOSE: CT Rad equipment meets quality standard of care and radiation dose reduction techniq ues were employed. CTDIvol: 23.9 mGy. DLP: 493 mGy-cm. mGy. LIMITATIONS: None. FINDINGS: VENTRICLES: Prominent. CEREBRUM: No masses. No hemorrhage. No midline shift. Areas of low density in the white matter mos t likely due to chronic micro-vascular ischemic change. No evidence for acute infarction. CEREBELLUM: No masses. No hemorrhage. No alteration of density. No evidence for acute infarction. EXTRAAXIAL SPACES: Mild age-related involutional change. No fluid collections. No masses. ORBITS AND GLOBE: No intra- or extraconal masses. Normal contour of globe without masses. CALVARIUM: No fracture. PARANASAL SINUSES: Chronic left maxillary sinusitis. SOFT TISSUES: No mass or hematoma. OTHER: No other significant finding. IMPRESSION: No acute intracranial abnormalities. Mild microvascular and involutional changes. Inci dental finding of chronic left maxillary sinusitis. EVIDENCE OF ACUTE STROKE: NO. TECHNICAL DOCUMENTATION: JOB ID: [id number] Quality ID # [id number]: Final reports with documentation of one or more dose reduction techniques (e.g., Au tomated exposure control, adjustment of the mA and/or kV according to patient size, use of iterative reconstruction technique) 2010 [employer]- All Rights Reserved Reading location - IP/workstation name: [email or web address]
[2020-06-28 18:05] LABS: INTERNATIONAL RATION (INR) 1.01; PROTHROMBIN TIME 13.5 SEC (11.4-15.4)
[2020-06-28] MEDS ORDERED: LEVOFLOXACIN 750 MG/D5W RTU 750 MG/150 ML RTUPB IV ONE (18:11)
[2020-06-28] MEDS ORDERED: VANCOMYCIN HCL INJ 1000 MG VIAL IV ONE (18:11)
--- NOTE | 2020-06-28 18:35 | ER Document Report ---
ED Extremity Problem, Lower - General Chief Complaint: Swelling of Lower Extremity Stated Complaint: WOUNDS, WEAKNESS Time Seen by Provider: 06/28/20 16:30 Primary Care Provider: CHRISTIANO DRISCOLL DA[facility] NUTRITION SPECIALIST, [facility]UTRITION SPECIALIST [Primary Care Provider] - Follow up as needed Mode of Arrival: Medic Information source: Patient TRAVEL OUTSIDE OF THE [place] IN LAST 30 DAYS: No - HPI Notes: Patient comes in complaining of weakness. He states for the last 7 to 8 days he is unable to get around like he usually does he states he can usually get around with a walker and now he is having trouble doing activities of daily living. He states he is having trouble getting out of a chair. He states he called the ambulance today because of his weakness and because his legs are hurting and leaking fluid and becoming more swollen. He denies any real shortness of breath or cough. Patient states he does not have any type of home health nurse for assistance. He states he does have a friend who comes over and assist him sometimes. Patient states the leg pain is worse on the right than the left. It is constant and burning. It is worse with movement and better with rest. Does radiate up his right leg. - Related Data Allergies/Adverse Reactions: milk [Milk] Allergy (Severe, Verified 02/03/19 15:41) wheat [Wheat] Allergy (Severe, Verified 02/03/19 15:41) Past Medical History - General Information source: Patient - Social History Smoking Status: Former Smoker Chew tobacco use (# tins/day): No Frequency of alcohol use: None Drug Abuse: None Family History: Reviewed & Not Pertinent, Other Patient has homicidal ideation: No - Past Medical History Cardiac Medical History: Reports: Hx Hypertension Denies: Hx Heart Attack Pulmonary Medical History: Denies: Hx Asthma Neurological Medical History: Denies: Hx Cerebrovascular Accident, Hx Seizures Renal/ Medical History: Denies: Hx Peritoneal Dialysis GI Medical History: Denies: Hx Hepatitis, Hx Hiatal Hernia, Hx Ulcer Psychiatric Medical History: Reports: Hx Anxiety, Hx Depression, Hx Post Traumatic Stress Disorder Infectious Medical History: Denies: Hx Hepatitis Past Surgical History: Reports: Hx Orthopedic Surgery. Denies: Hx Open Heart Surgery, Hx Pacemaker Review of Systems - Review of Systems Constitutional: Malaise, Weakness Cardiovascular: denies: Chest pain, Palpitations Respiratory: denies: Cough, Short of breath -: Yes All other systems reviewed and negative Physical Exam - Vital signs Vitals: Temp 97.8 F 06/28/20 16:09 Interpretation: Normal - General General appearance: Appears well, Alert - HEENT Head: Normocephalic, Atraumatic Eyes: Normal Pupils: PERRL - Respiratory Respiratory status: No respiratory distress Chest status: Nontender Breath sounds: Wheezing Chest palpation: Normal - Cardiovascular Rhythm: Regular Heart sounds: Normal auscultation Murmur: No - Abdominal Inspection: Normal Distension: No distension Bowel sounds: Normal Tenderness: Nontender Organomegaly: No organomegaly - Rectal Notes: Sacral area has bilateral stage I decubitus into the dermis. - Back Back: Normal, Nontender - Extremities General upper extremity: Normal inspection, Nontender, Normal color, Normal ROM, Normal temperature General lower extremity: Other - Lower extremities bilaterally have pitting edema as well as venous stasis changes. Although he states the right is the most tender at the left has the most induration and erythema. I feel the left lower extremity is concerning for an early cellulitis. - Neurological Neuro grossly intact: Yes Cognition: Normal Orientation: AAOx4 Mila Coma Scale Eye Opening: Spontaneous Mila Coma Scale Verbal: Oriented Mila Coma Scale Motor: Obeys Commands Philip Coma Scale Total: 15 Speech: Normal Motor strength normal: LUE, RUE, LLE, RLE Sensory: Normal - Psychological Associated symptoms: Normal affect, Normal mood - Skin Skin Temperature: Warm Skin Moisture: Dry Skin Color: Erythema Course - Re-evaluation Re-evalutation: 06/28/20 19:38 Patient presents with generalized weakness. He also presents with wheezing although states he does not feel short of breath. Chest x-ray is difficult to interpret due to body habitus. He does not have a white count or a fever however. I am going to cover him with antibiotics for his lower extremities as I feel that the left may be an early cellulitis. The antibiotics would cover respiratory pathogens as well. Patient's weakness seems to be mainly proximal muscles. Patient does live alone and does not have any type of assisted assistance at his house. He states he has had a hard time getting around doing activities of daily living. Seems prudent at this time for patient to be admitted for possible placement in a rehabilitation facility as he seems to have significant limitations in being able to do his activities of daily living as well as being a significant fall risk. - Vital Signs Vital signs: Temp Pulse Resp BP Pulse Ox 97.8 F 06/28/20 16:09 - Laboratory Result Diagrams: 06/28/20 17:00 06/28/20 17:00 Laboratory results interpreted by me: 06/28/20 06/28/20 06/28/20 17:00 17:00 17:00 Hgb 12.9 L Hct 36.9 L RDW 14.8 H Eos % (Auto) 10.0 H VBG HCO3 34.2 H Carbon Dioxide 33 H Total Bilirubin 1.4 H NT-Pro-B Natriuret Pep 06/28/20 17:00 Hgb Hct RDW Eos % (Auto) VBG HCO3 Carbon Dioxide Total Bilirubin NT-Pro-B Natriuret Pep 2960 H - Diagnostic Test Radiology reviewed: Image reviewed, Reports reviewed - EKG Interpretation by Me EKG shows normal: Sinus rhythm Rate: Normal - 68 Rhythm: NSR [place]/QRS: No: Right axis deviation, Left axis deviation Discharge - Discharge Clinical Impression: Weakness, Pressure ulcer of right heel, unstageable, Lower extremity edema, Morbid obesity with BMI of 40.0-44.9, adult, Acute bronchospasm, Chronic venous insufficiency of lower extremity, Prostate cancer Pressure ulcer of coccygeal region Qualifiers: Pressure injury stage: unspecified pressure injury stage Qualified Code(s): L89.159 - Pressure ulcer of sacral region, unspecified stage Condition: Serious Disposition: ADMITTED INPATIENT Admitting Provider: Magdiel (Hospitalist) Unit Admitted: Medical Floor Referrals: CHRISTIANO DRISCOLL NP, DAIRY NUTRITION SPECIALIST [Primary Care Provider] - Follow up as needed
[2020-06-28] MEDS ORDERED: ALBUTEROL SULFATE 0.083% NEB 2.5 MG/3 ML AMPUL NEB PRN (18:53)
[2020-06-28] MEDS ORDERED: ONDANSETRON HCL INJ/PF 4 MG/2 ML SDV IV PRN (18:53)
[2020-06-28] MEDS ORDERED: MAG HYDROX/AL HYDROX/SIMETH SUSP 30 ML UDCUP PO PRN (18:53)
[2020-06-28] MEDS ORDERED: ACETAMINOPHEN 325 MG TABLET PO PRN (18:53)
--- NOTE | 2020-06-28 19:00 | EKG REPORT ---
SEVERITY:- BORDERLINE ECG - SINUS RHYTHM BORDERLINE T ABNORMALITIES, INFERIOR LEADS : Confirmed by: Chetan Rodrigues MD 28-Jun-2020 18:59:43
--- NOTE | 2020-06-28 19:21 | PDOC H&P ---
History of Present Illness Admission Date/PCP: CHRISTIANO DRISCOLL NP Patient complains of: Weakness in legs and leg pains History of Present Illness: ANNA VACA is a 75 year old male with history of morbid obesity, hypertension, prostate cancer on Zytiga, who presents to the hospital from home for evaluation of pain and weakness in his legs. Patient has significant chronic venostasis in both legs with edema all the way up to above his knees. He usually ambulates with a walker. He states he has been trying to get into rehabilitation for the longest time. However in the past few days patient began experiencing more difficulty getting around. [place] weak all over especially his legs. Has had a tough time with this and decided to come to the hospital. He states that his inability to walk was not acute and has been gradually building up for some time now. On evaluation in the ER, patient was also noted to have significant wheezing. He does admit to some sore throat that started a few days ago. He denies any history of COPD or asthma and states he does not have any history of smoking. He denies any fever or chills. Denies any significant p roduction of cough. Past Medical History Cardiac Medical History: Reports: Hypertension Denies: Myocardial Infarction Pulmonary Medical History: Denies: Asthma Neurological Medical History: Denies: Seizures GI Medical History: Denies: Hepatitis, Hiatal Hernia Psychiatric Medical History: Reports: Depression, Post Traumatic Stress Disorder Hematology: Denies: Anemia, Sickle Cell Disease Past Surgical History Past Surgical History: Reports: Orthopedic Surgery Denies: Pacemaker Social History Smoking Status: Former Smoker Electronic Cigarette use?: No Frequency of Alcohol Use: None Hx Recreational Drug Use: No Hx Prescription Drug Abuse: No - Advance Directive Resuscitation Status: Full Code Family History Family History: Hypertension Parental Family History Reviewed: Yes Children Family History Reviewed: NA Sibling(s) Family History Reviewed.: NA Medication/Allergy Home Medications: Abiraterone Acetate [Zytiga] 1,000 mg PO DAILY 12/07/19 Cholecalciferol (Vitamin D3) [Vitamin D3 1000 Unit Tablet] 1,000 unit PO QHS 12/07/19 Fluoxetine HCl [Prozac 20 mg Capsule] 40 mg PO WLUNCH 12/07/19 Metoprolol Succinate [Toprol Xl 25 mg Tab.sr] 12.5 mg PO DAILY 12/07/19 Olanzapine [Zyprexa] 1.25 mg PO WLUNCH 12/07/19 Omeprazole 20 mg PO QHS 12/07/19 Sennosides/Docusate Sodium [Senna Plus 8.6-50 mg Tablet] 2 each PO QHS 12/07/19 Tamsulosin HCl [Flomax] 0.4 mg PO DAILY 12/07/19 Calcium Carbonate [Os-Loc 500 mg Tablet (Oyster-Shell)] 500 mg PO BIDLS 06/28/20 Hydrochlorothiazide [Hydrodiuril 25 mg Tablet] 25 mg PO QAM 06/28/20 Melatonin [Melatonin 5 mg Tablet] 5 mg PO QHS 06/28/20 Allergies/Adverse Reactions: milk [Milk] Allergy (Severe, Verified 02/03/19 15:41) wheat [Wheat] Allergy (Severe, Verified 02/03/19 15:41) Review of Systems Constitutional: PRESENT: weakness. ABSENT: chills, fatigue, fever(s) Eyes: ABSENT: visual disturbances Ears: ABSENT: hearing changes Nose, Mouth, and Throat: ABSENT: headache(s) Cardiovascular: ABSENT: chest pain Respiratory: PRESENT: cough - Occasionally. ABSENT: dyspnea, sputum Gastrointestinal: ABSENT: abdominal pain, diarrhea, nausea, vomiting Genitourinary: ABSENT: dysuria Integumentary: ABSENT: diaphoresis Neurological: ABSENT: dizziness Psychiatric: ABSENT: anxiety Endocrine: ABSENT: polyuria Physical Exam Vital Signs: Temp Pulse Resp BP Pulse Ox 97.8 F 06/28/20 16:09 Intake & Output 06/27/20 06/28/20 06/29/20 06:59 06:59 06:59 Weight 130 kg General appearance: PRESENT: no acute distress, cooperative, hard of hearing, morbidly obese. ABSENT: disheveled Head exam: PRESENT: normocephalic Eye exam: PRESENT: EOMI Neck exam: ABSENT: JVD Respiratory exam: PRESENT: symmetrical, unlabored, wheezes - Expiratory wheezes. ABSENT: accessory muscle use, clear to auscultation namrata, crackles, rales, rhonchi, stridor, tachypnea Cardiovascular exam: PRESENT: RRR, +S1, +S2. ABSENT: tachycardia GI/Abdominal exam: PRESENT: soft. ABSENT: rebound, rigid, tenderness Extremities exam: PRESENT: other - bilateral nonpitting edema over his knees without area of mild excoriation and surrounding erythema mild Neurological exam: PRESENT: alert, awake, oriented to person, oriented to place, oriented to time Focused psych exam: ABSENT: pressured speech Skin exam: PRESENT: skin tears Results Laboratory Results: 06/28/20 17:00 06/28/20 17:00 06/28/20 06/28/20 06/28/20 17:00 17:00 17:00 WBC 6.0 RBC 4.36 Hgb 12.9 L Hct 36.9 L MCV 85 MCH 29.6 MCHC 35.0 RDW 14.8 H Plt Count 228 Seg Neutrophils % 57.8 VBG pH 7.40 VBG pCO2 57.0 VBG HCO3 34.2 H VBG Base Excess 7.1 Sodium 139.5 Potassium 3.6 Chloride 99 Carbon Dioxide 33 H Anion Gap 8 BUN 18 Creatinine 0.77 Est GFR ( Amer) > 60 Glucose 101 Lactic Acid Calcium 9.1 Total Bilirubin 1.4 H AST 32 Alkaline Phosphatase 115 Total Protein 7.2 Albumin 3.8 TSH 06/28/20 06/28/20 17:00 17:00 WBC RBC Hgb Hct MCV MCH MCHC RDW Plt Count Seg Neutrophils % VBG pH VBG pCO2 VBG HCO3 VBG Base Excess Sodium Potassium Chloride Carbon Dioxide Anion Gap BUN Creatinine Est GFR ( Amer) Glucose Lactic Acid 1.5 Calcium Total Bilirubin AST Alkaline Phosphatase Total Protein Albumin TSH 3.58 06/28/20 17:00 Troponin I 0.022 Impressions: Chest X-Ray 06/28/20 16:53 IMPRESSION: In the appropriate clinical setting, findings are consistent with left lower lobe pneumonia. Head CT 06/28/20 16:54 IMPRESSION: No acute intracranial abnormalities. Mild microvascular and inv olutional changes. Incidental finding of chronic left maxillary sinusitis. EVIDENCE OF ACUTE STROKE: NO. Assessment and Plan - Diagnosis (1) Acute bronchospasm Is this a current diagnosis for this admission?: Yes Plan: Patient denies history of COPD or asthma denies history of smoking in the past. In the absence of COPD/asthma, he is active wheezing may be secondary to reactive airway disease/bronchospasms. Does endorse recent sore throat. Chest x-ray is poor quality but shows some bilateral lower infiltrates but not quite convincing for pneumonia. Will get a chest CT. Test for flu and COVID-19 Bronchodilator treatments and Solu-Medrol (2) Chronic venous insufficiency of lower extremity Is this a current diagnosis for this admission?: Yes Plan: Compression wraps and leg elevation. Local wound care. Does not appear to be cellulitis. (3) Generalized weakness Is this a current diagnosis for this admission?: Yes Plan: Physical and Occupational Therapy (4) Hypertension Qualifiers: Hypertension type: essential hypertension Qualified Code(s): I10 - Essential (primary) hypertension Is this a current diagnosis for this admission?: Yes Plan: Resume home meds (5) Prostate cancer Is this a current diagnosis for this admission?: Yes Plan: On Zytiga at home (6) Morbid obesity with BMI of 40.0-44.9, adult Is this a current diagnosis for this admission?: Yes - Time Time Spent with patient: 35 or more minutes Anticipated Discharge Disposition: Senior Care Facility Anticipated Discharge Timeframe: within 48 hours
[2020-06-28] MEDS ORDERED: METHYLPREDNISOLONE INJ 40 MG/1 ML SDV IV ONE (19:30)
--- NOTE | 2020-06-28 20:22 | RADIOLOGY REPORT (SQ) ---
PROCEDURE: CLINICAL HISTORY: 75 years Male wheezing, abnormal chest xray COMPARISON: None. TECHNIQUE: Contiguous axial images obtained through the chest without IV contrast. Reformatted images obtained. This exam was performed according to our department optimization program which includes automated exposure control, adjustment of the mA and/or kv according to patient size and/or use of iterative reconstruction technique. FINDINGS: Calcifications in the coronary arteries and aorta. The aorta appears normal in caliber. Hepatic cyst. No significant hilar or mediastinal lymph nodes. Atelectasis in both lung bases. No groundglass infiltrates or consolidation. No pericardial or pleural effusion. Diffuse sclerotic lesions throughout the osseous structures consistent with widespread metastatic disease. IMPRESSION: Atelectasis in the lung bases left greater than right without evidence to suggest consolidation Findings consistent with widespread osseous metastatic disease
[2020-06-28] MEDS: IPRATROPIUM/ALBUTEROL 0.5-2.5 MG/3 ML AMPUL NEB SCH (21:08)
[2020-06-28 21:38] LABS: A TYPE INFLUENZA AG NEGATIVE (NEGATIVE); B INFLUENZA AG NEGATIVE (NEGATIVE)
[2020-06-28] MEDS: MELATONIN 5 MG TABLET PO SCH (23:25)
[2020-06-28] MEDS: SENNOSIDES/DOCUSATE 8.6-50 MG 1 EACH TABLET PO SCH (23:25)
[2020-06-28] MEDS: CHOLECALCIFEROL (D3) 1,000 UNIT (25 MCG) TABLET PO SCH (23:25)
[2020-06-29] MEDS: IPRATROPIUM/ALBUTEROL 0.5-2.5 MG/3 ML AMPUL NEB SCH ×3 (00:19→15:36)
[2020-06-29 02:59] LABS: APPEARANCE,URINE CLEAR; BILIRUBIN,URINE NEGATIVE (NEGATIVE); COLOR,URINE YELLOW; GLUCOSE, URINE NEGATIVE (NEGATIVE); KETONES,URINE NEGATIVE (NEGATIVE); PROTEIN,URINE NEGATIVE (NEGATIVE); URINE SPECIFIC GRAVITY 1.009; UROBILINOGEN,URINE NEGATIVE mg/dL (<2.0)
[2020-06-29 05:59] LABS: HEMATOCRIT 32.3 % (37.9-51.0); HEMOGLOBIN 11.3 g/dL (13.5-17.0); MEAN CORPUSCULAR HEMOGLOBIN 29.4 pg (27.0-33.4); MEAN CORPUSCULAR HGB CONC 35.1 g/dL (32.0-36.0); MEAN CORPUSCULAR VOLUME 84 fl (80-97); PLATELET COUNT 200 10^3/uL (150-450); RED BLOOD COUNT 3.85 10^6/uL (4.35-5.55); RED CELL DISTRIBUTION WIDTH 14.7 % (11.5-14.0); WHITE BLOOD COUNT 6.2 10^3/uL (4.0-10.5)
[2020-06-29 06:26] LABS: ANION GAP 8 (5-19); BLOOD UREA NITROGEN 18 mg/dL (7-20); CALCIUM 8.8 mg/dL (8.4-10.2); CARBON DIOXIDE 30 mmol/L (22-30); CHLORIDE 101 mmol/L (98-107); GLUCOSE 151 mg/dL (75-110); PHOSPHORUS 4.2 mg/dL (2.5-4.5); POTASSIUM 3.6 mmol/L (3.6-5.0)
[2020-06-29] MEDS ORDERED: METHYLPREDNISOLONE INJ 40 MG/1 ML SDV IV SCH (10:00)
[2020-06-29] MEDS: ENOXAPARIN SODIUM INJ 40 MG/0.4 ML DISP.SYRIN SUBCUT SCH (10:14)
[2020-06-29] MEDS: CALCIUM CARBONATE 600 MG TABLET PO SCH ×2 (10:15→17:40)
[2020-06-29] MEDS: TAMSULOSIN HCL 0.4 MG CAP.SR.24H PO SCH (10:15)
[2020-06-29] MEDS: METOPROLOL SUCCINATE 25 MG TAB.SR.24H PO SCH (10:15)
[2020-06-29] MEDS: OLANZAPINE 2.5 MG TABLET PO SCH (11:30)
[2020-06-29] MEDS: FLUOXETINE HCL 20 MG CAPSULE PO SCH (11:30)
[2020-06-29] MEDS ORDERED: IBUPROFEN 400 MG TABLET PO PRN (13:44)
--- NOTE | 2020-06-29 13:47 | PDOC PROGRESS REPORT ---
Subjective Progress Note for:: 06/29/20 Subjective:: Patient feels well today. He denies any shortness of breath. Feels comfortable. He is not having any wheezing today. Reason For Visit: REACTIVE AIRWAY DISEASE,WEAKNESS,VENOSTASIS Physical Exam Vital Signs: Temp Pulse Resp BP Pulse Ox 98.2 F 69 18 134/53 H 96 06/29/20 10:56 06/29/20 10:56 06/29/20 10:56 06/29/20 10:56 06/29/20 10:56 Intake & Output 06/28/20 06/29/20 06/30/20 06:59 06:59 06:59 Intake Total 150 236 Output Total 840 175 Balance -690 61 Weight 131.5 kg General appearance: PRESENT: no acute distress, cooperative Neck exam: ABSENT: JVD Respiratory exam: PRESENT: clear to auscultation namrata, symmetrical, unlabored. ABSENT: tachypnea, wheezes Cardiovascular exam: PRESENT: RRR, +S1, +S2. ABSENT: tachycardia GI/Abdominal exam: PRESENT: soft. ABSENT: rebound, rigid, tenderness Extremities exam: PRESENT: +2 edema - Bilateral lower extremity nonpitting Neurological exam: PRESENT: alert, awake Results Laboratory Results: 06/29/20 04:35 06/29/20 04:35 06/28/20 06/28/20 06/28/20 17:00 17:00 17:00 WBC 6.0 RBC 4.36 Hgb 12.9 L Hct 36.9 L MCV 85 MCH 29.6 MCHC 35.0 RDW 14.8 H Plt Count 228 Seg Neutrophils % 57.8 VBG pH 7.40 VBG pCO2 57.0 VBG HCO3 34.2 H VBG Base Excess 7.1 Sodium 139.5 Potassium 3.6 Chloride 99 Carbon Dioxide 33 H Anion Gap 8 BUN 18 Creatinine 0.77 Est GFR ( Amer) > 60 Glucose 101 Lactic Acid Calcium 9.1 Phosphorus Magnesium Total Bilirubin 1.4 H AST 32 Alkaline Phosphatase 115 Total Protein 7.2 Albumin 3.8 TSH Urine Color Urine Appearance Urine pH Ur Specific [place] Urine Protein Urine Glucose (UA) Urine Ketones Urine Blood Urine RBC (Auto) 06/28/20 06/28/20 06/28/20 17:00 17:00 19:52 WBC RBC Hgb Hct MCV MCH MCHC RDW Plt Count Seg Neutrophils % VBG pH VBG pCO2 VBG HCO3 VBG Base Excess Sodium Potassium Chloride Carbon Dioxide Anion Gap BUN Creatinine Est GFR ( Amer) Glucose Lactic Acid 1.5 1.4 Calcium Phosphorus Magnesium Total Bilirubin AST Alkaline Phosphatase Total Protein Albumin TSH 3.58 Urine Color Urine Appearance Urine pH Ur Specific [place] Urine Protein Urine Glucose (UA) Urine Ketones Urine Blood Urine RBC (Auto) 06/28/20 06/29/20 06/29/20 23:02 02:40 04:35 WBC 6.2 RBC 3.85 L Hgb 11.3 L Hct 32.3 L MCV 84 MCH 29.4 MCHC 35.1 RDW 14.7 H Plt Count 200 Seg Neutrophils % VBG pH VBG pCO2 VBG HCO3 VBG Base Excess Sodium Potassium Chloride Carbon Dioxide Anion Gap BUN Creatinine Est GFR ( Amer) Glucose Lactic Acid 1.0 Calcium Phosphorus Magnesium Total Bilirubin AST Alkaline Phosphatase Total Protein Albumin TSH Urine Color YELLOW Urine Appearance CLEAR Urine pH 7.0 Ur Specific [place] 1.009 Urine Protein NEGATIVE Urine Glucose (UA) NEGATIVE Urine Ketones NEGATIVE Urine Blood SMALL H Urine RBC (Auto) 2 06/29/20 04:35 WBC RBC Hgb Hct MCV MCH MCHC RDW Plt Count Seg Neutrophils % VBG pH VBG pCO2 VBG HCO3 VBG Base Excess Sodium 138.6 Potassium 3.6 Chloride 101 Carbon Dioxide 30 Anion Gap 8 BUN 18 Creatinine 0.84 Est GFR ( Amer) > 60 Glucose 151 H Lactic Acid Calcium 8.8 Phosphorus 4.2 Magnesium 1.9 Total Bilirubin AST Alkaline Phosphatase Total Protein Albumin TSH Urine Color Urine Appearance Urine pH Ur Specific [place] Urine Protein Urine Glucose (UA) Urine Ketones Urine Blood Urine RBC (Auto) 06/28/20 06/28/20 17:00 17:00 Troponin I 0.022 NT-Pro-B Natriuret Pep 2960 H Impressions: Chest CT 06/28/20 00:00 IMPRESSION: Atelectasis in the lung bases left greater than right without evidence to suggest consolidation Findings consistent with widespread osseous metastatic disease Chest X-Ray 06/28/20 16:53 IMPRESSION: In the appropriate clinical setting, findings are consistent with left lower lobe pneumonia. Head CT 06/28/20 16:54 IMPRESSION: No acute intracranial abnormalities. Mild microvascular and involutional changes. Incidental finding of chronic left maxillary sinusitis. EVIDENCE OF ACUTE STROKE: NO. Assessment and Plan - Diagnosis (1) Acute bronchospasm Is this a current diagnosis for this admission?: Yes Plan: Patient denies history of COPD or asthma denies history of smoking in the past. In the absence of COPD/asthma, he is active wheezing may be secondary to reactive airway disease/bronchospasms. CT chest shows only atelectasis and no actual consolidation suggestive of a pneumonia. Bronchodilator treatments. Will discontinue steroids tomorrow. Wheezing has actually resolved today. (2) Elevated brain natriuretic peptide (BNP) level Is this a current diagnosis for this admission?: Yes Plan: Patient does have elevated BNP and constellation with lower extremity swelling. Wonder if there is a contribution of potential right heart failure/pulmonary hypertension to patient's presentation especially given his obesity. Currently not having any pulmonary edema. We will check an echocardiogram before deciding on to initiate small dose of diuretic. (3) Chronic venous insufficiency of lower extremity Is this a current diagnosis for this admission?: Yes Plan: Compression wraps and leg elevation. Local wound care. Does not appear to be cellulitis. (4) Generalized weakness Is this a current diagnosis for this admission?: Yes Plan: Physical and Occupational Therapy. Rehab placement. (5) Hypertension Qualifiers: Hypertension type: essential hypertension Qualified Code(s): I10 - Essential (primary) hypertension Is this a current diagnosis for this admission?: Yes Plan: Resume home meds (6) Prostate cancer Is this a current diagnosis for this admission?: Yes Plan: Chest CT showed multiple osseous metastatic disease. I discussed this with patient and he seems advised about bone metastases. However, Zytiga is used usually when bone metastasis was present so I do suspect he may have had some sort of bone mets before. Pain control. (7) Morbid obesity with BMI of 40.0-44.9, adult Is this a current diagnosis for this admission?: Yes - Time Time Spent with patient: Less than 15 minutes Anticipated Discharge Disposition: Senior Living Facility Anticipated Discharge Timeframe: when bed available
[2020-06-29] MEDS: HYDROCHLOROTHIAZIDE 25 MG TABLET PO SCH (14:19)
--- NOTE | 2020-06-29 16:34 | XCELERA REPORT ---
[address] [address] Transthoracic Echocardiogram Report Name: ANNA VACA Age: 75 yrs Gender: Male : 1945 Patient Status: Inpatient Patient Location: [facility]^A Study Date: 06/29/2020 08:41 AM Height: 71 in Weight: 289 lb BSA: 2.5 m2 Reason For Study: LE swelling, ohs, suspecting right heart failure Ordering Physician: RUEL BRIGHT Performed By: Kylie Rothman Interpretation Summary FINDINGS: technically ifficult LEFT VENTRICLE: LV Systolic function: LVEF is felt to be within normal limits. Best estimate is approximately LVEF is 60 %. LV Diastolic Function: grade I diastolic dysfunction noted. Wall motion : No definite regional wall motion abnormalities are noted. Left ventricular chamber size : is within normal limit. Left ventricular wall thickness : is increased indicative of Mild LVH. INTERVENTRICULAR SEPTUM: no evidence of VSD noted. No asymmetric hypertrophy noted. RIGHT VENTRICLE: RV systolic function : cannot be accurately commented upon. Right Ventricle Size : mildly dilated. LEFT ATRIUM size : mildly dilated. RIGHT ATRIUM size : mildly dilated. INTER ATRIAL SEPTUM : No definite atrial septal defect noted however a small PFO could be missed. AORTIC ROOT : seems to be within normal limits. Ascending aorta is not well visualized. INFERIOR VENA CAVA: IDC not well visualized but hepatic seems dilated. VALVES: MITRAL VALVE : Leaflets are mildly thickened. Mobility seems to be within normal limits. Mitral Regurgitation : Trace mitral regurgitation is noted. Mitral Stenosis: No mitral stenosis noted. Mitral valve prolapse : none noted. AORTIC VALVE: seems to be trileaflet with thickening but adequate excursion. Aortic stenosis : No aortic stenosis noted. Aortic regurgitation : No aortic incompetence noted. TRICUSPID VALVE : mobility and structures within normal limit. Tricuspid stenosis : no tricuspid stenosis noted. Tricuspid regurgitation : mild tricuspid regurgitation noted. Estimated RVSP : approximately 45 mm Hg consistent with mild to moderate pulmonary hypertension. PULMONARY VALVE : was not well visualized but no significant abnormalities suspected. Pulmonary stenosis : no significant pulmonary stenosis noted. Pulmonary regurgitation : no significant pulmonary regurgitation noted. MASSES AND THROMBUS : No definite intracardiac thrombus or masses are noted. PERICARDIUM: No pericardial effusion was noted. IMPRESSION : 1. Normal LVEF. 2. Mild LVH noted. 3. Grade I Diastolic Dysfunction noted. 4. Mild tricuspid regurgitation noted. 5. RA and RV mildly dialted. 6. Mild to moderate pulmonary hypertension noted. MMode/2D Measurements & Calculations RVDd: 2.6 cm LVIDd: 4.8 cm FS: 41.7 % Ao root diam: 3.3 cm IVSd: 1.2 cm LVIDs: 2.8 cm EDV(Teich): 106.3 ml LVPWd: 1.1 cm ESV(Teich): 29.1 ml Ao root area: 8.7 cm2 EF(Teich): 72.6 % Doppler Measurements & Calculations MV E max georges: MV dec slope: Ao V2 max: LV V1 max P.2 cm/sec 450.2 cm/sec2 190.3 cm/sec 9.1 mmHg MV A max georges: MV dec time: Ao max PG: LV V1 max: 116.0 cm/sec 0.21 sec 14.5 mmHg 150.8 cm/sec MV E/A: 0.81 PA V2 max: PI end-d georges: TR max georges: 100.4 cm/sec 89.7 cm/sec 315.6 cm/sec PA max P.0 mmHg TR max P.8 mmHg : RUEL BRIGHT Shyamal
[2020-06-29] MEDS: SENNOSIDES/DOCUSATE 8.6-50 MG 1 EACH TABLET PO SCH (21:21)
[2020-06-29] MEDS: CHOLECALCIFEROL (D3) 1,000 UNIT (25 MCG) TABLET PO SCH (21:22)
[2020-06-29] MEDS: MELATONIN 5 MG TABLET PO SCH (21:22)
[2020-06-30] MEDS: IPRATROPIUM/ALBUTEROL 0.5-2.5 MG/3 ML AMPUL NEB SCH ×5 (00:14→23:54)
[2020-06-30] MEDS: HYDROCHLOROTHIAZIDE 25 MG TABLET PO SCH (07:50)
[2020-06-30] MEDS ORDERED: ABIRATERONE ACETATE 1000 MG PO SCH (10:00)
[2020-06-30] MEDS: METOPROLOL SUCCINATE 25 MG TAB.SR.24H PO SCH (10:25)
[2020-06-30] MEDS: TAMSULOSIN HCL 0.4 MG CAP.SR.24H PO SCH (10:29)
[2020-06-30] MEDS: ENOXAPARIN SODIUM INJ 40 MG/0.4 ML DISP.SYRIN SUBCUT SCH (10:29)
[2020-06-30] MEDS: CALCIUM CARBONATE 600 MG TABLET PO SCH ×2 (10:29→17:27)
--- NOTE | 2020-06-30 11:17 | PDOC PROGRESS REPORT ---
Subjective Progress Note for:: 06/30/20 Subjective:: Patient states his breathing is improved. Echocardiogram and done and results noted for pretty insignificant findings. Reason For Visit: REACTIVE AIRWAY DISEASE,WEAKNESS,VENOSTASIS Physical Exam Vital Signs: Temp Pulse Resp BP Pulse Ox 97.9 F 51 L 16 127/60 H 94 06/30/20 08:16 06/30/20 08:33 06/30/20 08:33 06/30/20 07:51 06/30/20 08:33 Intake & Output 06/29/20 06/30/20 07/01/20 06:59 06:59 06:59 Intake Total 150 896 Output Total 840 1925 Balance -690 -1029 Weight 131.5 kg 131.5 kg General appearance: PRESENT: no acute distress, obese, well-nourished Head exam: PRESENT: atraumatic, normocephalic Eye exam: PRESENT: conjunctiva pink, EOMI, PERRLA. ABSENT: scleral icterus Ear exam: PRESENT: normal external ear exam Mouth exam: PRESENT: moist, tongue midline Neck exam: ABSENT: carotid bruit, JVD, lymphadenopathy, thyromegaly Respiratory exam: PRESENT: rhonchi - Scattered, unlabored. ABSENT: rales, wheezes Cardiovascular exam: PRESENT: RRR, +S1, +S2. ABSENT: diastolic murmur, rubs, systolic murmur Pulses: PRESENT: normal dorsalis pedis pul Vascular exam: PRESENT: normal capillary refill GI/Abdominal exam: PRESENT: normal bowel sounds, soft. ABSENT: distended, guarding, mass, organolmegaly, rebound, tenderness Rectal exam: PRESENT: deferred Extremities exam: PRESENT: +2 edema. ABSENT: calf tenderness, clubbing, pedal edema Neurological exam: PRESENT: alert, awake, oriented to person, oriented to place, oriented to time, oriented to situation. ABSENT: motor sensory deficit Psychiatric exam: PRESENT: appropriate affect, normal mood. ABSENT: homicidal ideation, suicidal ideation Skin exam: PRESENT: dry, warm, other - Venous stasis with left calf half quarter sized ulcer Dry and flaky skin with a superficial tear on the right cho. ABSENT: cyanosis, rash Results Laboratory Results: 06/29/20 04:35 06/29/20 04:35 06/28/20 06/28/20 17:00 17:00 Troponin I 0.022 NT-Pro-B Natriuret Pep 2960 H Impressions: Chest CT 06/28/20 00:00 IMPRESSION: Atelectasis in the lung bases left greater than right without evidence to suggest consolidation Findings consistent with widespread osseous metastatic disease Chest X-Ray 06/28/20 16:53 IMPRESSION: In the appropriate clinical setting, findings are consistent with left lower lobe pneumonia. Head CT 06/28/20 16:54 IMPRESSION: No acute intracranial abnormalities. Mild microvascular and involutional changes. Incidental finding of chronic left maxillary sinusitis. EVIDENCE OF ACUTE STROKE: NO. Assessment and Plan - Diagnosis (1) Acute bronchospasm Is this a current diagnosis for this admission?: Yes Plan: Wheezing has resolved. Patient is off steroids. (2) Chronic venous insufficiency of lower extremity Is this a current diagnosis for this admission?: Yes Plan: Compression wraps and leg elevation. Local wound care. We will also obtain wound care nurse for further evaluation (3) Elevated brain natriuretic peptide (BNP) level Is this a current diagnosis for this admission?: Yes Plan: Echocardiogram shows mild diastolic dysfunction with LVEF more than 60%. Elevated BNP likely secondary to his other comorbidities (4) Generalized weakness Is this a current diagnosis for this admission?: Yes Plan: Physical and Occupational Therapy. May need home with physical therapy if discharged home (5) Morbid obesity with BMI of 40.0-44.9, adult Is this a current diagnosis for this admission?: Yes (6) Prostate cancer Is this a current diagnosis for this admission?: Yes Plan: Chest CT showed multiple osseous metastatic disease. As patient is on Zytiga outpatient this is likely a known and old diagnosis. Continue to follow-up as outpatient - Plan Summary Summary: At this point plan is to encourage ambulation and possibly discharge home - Time Time Spent with patient: 15-24 minutes Anticipated Discharge Disposition: Home with Home Health Anticipated Discharge Timeframe: within 24 hours
[2020-06-30] MEDS: OLANZAPINE 2.5 MG TABLET PO SCH (11:36)
[2020-06-30] MEDS: FLUOXETINE HCL 20 MG CAPSULE PO SCH (11:37)
[2020-06-30] MEDS ORDERED: LACTULOSE SYRUP 20 GM/30 ML UDCUP PO PRN (15:16)
[2020-06-30] MEDS: SENNOSIDES/DOCUSATE 8.6-50 MG 1 EACH TABLET PO SCH (21:19)
[2020-06-30] MEDS: CHOLECALCIFEROL (D3) 1,000 UNIT (25 MCG) TABLET PO SCH (21:20)
[2020-06-30] MEDS: MELATONIN 5 MG TABLET PO SCH (21:20)
[2020-07-01] MEDS: GUAIFENESIN SYRP 200 MG/10 ML UDC PO PRN ×2 (01:18→07:49)
[2020-07-01] MEDS: HYDROCHLOROTHIAZIDE 25 MG TABLET PO SCH (07:46)
[2020-07-01] MEDS: IPRATROPIUM/ALBUTEROL 0.5-2.5 MG/3 ML AMPUL NEB SCH ×2 (09:08→17:07)
[2020-07-01] MEDS: CALCIUM CARBONATE 600 MG TABLET PO SCH (10:27)
[2020-07-01] MEDS: TAMSULOSIN HCL 0.4 MG CAP.SR.24H PO SCH (10:27)
[2020-07-01] MEDS: METOPROLOL SUCCINATE 25 MG TAB.SR.24H PO SCH (10:27)
[2020-07-01] MEDS: ENOXAPARIN SODIUM INJ 40 MG/0.4 ML DISP.SYRIN SUBCUT SCH (10:28)
[2020-07-01] MEDS: OLANZAPINE 2.5 MG TABLET PO SCH (11:55)
[2020-07-01] MEDS: FLUOXETINE HCL 20 MG CAPSULE PO SCH (11:55)
--- NOTE | 2020-07-01 12:54 | PDOC TRANSFER SUMMARY ---
Impression - Admit/DC Date/PCP Admission Date/Primary Care Provider: 06/28/20 20:07 CHRISTIANO DRISCOLL NP Discharge Date: 07/01/20 - Discharge Diagnosis (1) Acute bronchospasm Is this a current diagnosis for this admission?: Yes (2) Chronic venous insufficiency of lower extremity Is this a current diagnosis for this admission?: Yes (3) Elevated brain natriuretic peptide (BNP) level Is this a current diagnosis for this admission?: Yes (4) Generalized weakness Is this a current diagnosis for this admission?: Yes (5) Morbid obesity with BMI of 40.0-44.9, adult Is this a current diagnosis for this admission?: Yes (6) Prostate cancer Is this a current diagnosis for this admission?: Yes - Additional Information Resuscitation Status: Full Code Discharge Activity: Activity As Tolerated Referrals: CHRISTIANO DRISCOLL NP, [facility] [Primary Care Provider] - Follow up as needed Home Medications: Abiraterone Acetate [Zytiga] 1,000 mg PO DAILY 12/07/19 Cholecalciferol (Vitamin D3) [Vitamin D3 1000 Unit Tablet] 1,000 unit PO QHS 12/07/19 Fluoxetine HCl [Prozac 20 mg Capsule] 40 mg PO WLUNCH 12/07/19 Metoprolol Succinate [Toprol Xl 25 mg Tab.sr] 12.5 mg PO DAILY 12/07/19 Olanzapine [Zyprexa] 1.25 mg PO WLUNCH 12/07/19 Omeprazole 20 mg PO QHS 12/07/19 Sennosides/Docusate Sodium [Senna Plus 8.6-50 mg Tablet] 2 each PO QHS 12/07/19 Tamsulosin HCl [Flomax] 0.4 mg PO DAILY 12/07/19 Calcium Carbonate [Os-Loc 500 mg Tablet (Oyster-Shell)] 500 mg PO BIDLS 06/28/20 Hydrochlorothiazide [Hydrodiuril 25 mg Tablet] 25 mg PO QAM 06/28/20 Melatonin [Melatonin 5 mg Tablet] 5 mg PO QHS 06/28/20 Acetaminophen [Tylenol 325 mg Tablet] 975 mg PO Q6HP PRN tablet 07/01/20 Albuterol Sulfate [Ventolin 0.083% Neb 2.5 mg/3 mL Ampul] 2.5 mg NEB RTQ4HP PRN vial.neb 10/02/20 History of Present Illiness History of Present Illness: ANNA VACA is a 75 year old male This patient was admitted with weakness in the legs. He has significant chronic venous stasis in the legs and usually ambulates with a walker. He was found to be in acute bronchospasm with wheezing on admission and so was admitted for further management. Hospital Course Hospital Course: Patient was started on bronchodilators and was also initially treated with steroids. Initial chest x-ray showed some bilateral lower infiltrates and subsequent CT chest revealed atelectasis in the lung bases with no evidence of consolidation. He also had findings consistent with widespread osseous metastatic disease. This is felt to be an old finding as patient is on Zytiga which is used for metastatic disease however he has been advised to follow-up with his oncologist and primary care physician. Patient's bronchospasm has resolved. His breathing appears to be at his baseline however he continues to be weak and at this point it is felt that he would benefit from rehabilitation so he has been discharged for physical rehabilitation Physical Exam Vital Signs: Temp Pulse Resp BP Pulse Ox 98.1 F 62 16 152/78 H 94 07/01/20 07:52 07/01/20 08:55 07/01/20 08:55 07/01/20 05:14 07/01/20 08:55 Intake & Output 06/30/20 07/01/20 07/02/20 06:59 06:59 06:59 Intake Total 896 960 Output Total 1925 2065 Balance -1029 -1105 Weight 131.5 kg 128.4 kg General appearance: PRESENT: no acute distress, obese, well-nourished Head exam: PRESENT: atraumatic Eye exam: PRESENT: conjunctiva pink, EOMI, PERRLA. ABSENT: scleral icterus Mouth exam: PRESENT: moist, tongue midline Neck exam: ABSENT: carotid bruit, JVD, lymphadenopathy, thyromegaly Respiratory exam: PRESENT: clear to auscultation namrata. ABSENT: rales, rhonchi, wheezes Cardiovascular exam: PRESENT: RRR, +S1, +S2. ABSENT: diastolic murmur, rubs, systolic murmur Pulses: PRESENT: normal dorsalis pedis pul Vascular exam: PRESENT: normal capillary refill GI/Abdominal exam: PRESENT: normal bowel sounds, soft. ABSENT: distended, guard ing, mass, organolmegaly, rebound, tenderness Rectal exam: PRESENT: deferred Extremities exam: PRESENT: full ROM, other - Lower extremity swelling, ly mphedema bilaterally, right cho small abrasion as well as left calf superficial ulceration. ABSENT: calf tenderness, clubbing, pedal edema Neurological exam: PRESENT: alert, awake, oriented to person, oriented to place, oriented to time, oriented to situation, CN II-XII grossly intact. ABSENT: motor sensory deficit Psychiatric exam: PRESENT: appropriate affect, normal mood. ABSENT: homicidal ideation, suicidal ideation Skin exam: PRESENT: dry, intact, warm. ABSENT: cyanosis, rash Results Laboratory Results: WBC 6.2 10^3/uL (4.0-10.5) 06/29/20 04:35 RBC 3.85 10^6/uL (4.35-5.55) L 06/29/20 04:35 Hgb 11.3 g/dL (13.5-17.0) L 06/29/20 04:35 Hct 32.3 % (37.9-51.0) L 06/29/20 04:35 MCV 84 fl (80-97) 06/29/20 04:35 MCH 29.4 pg (27.0-33.4) 06/29/20 04:35 MCHC 35.1 g/dL (32.0-36.0) 06/29/20 04:35 RDW 14.7 % (11.5-14.0) H 06/29/20 04:35 Plt Count 200 10^3/uL (150-450) 06/29/20 04:35 Lymph % (Auto) 23.1 % (13-45) 06/28/20 17:00 Christian % (Auto) 8.6 % (3-13) 06/28/20 17:00 Eos % (Auto) 10.0 % (0-6) H 06/28/20 17:00 Baso % (Auto) 0.5 % (0-2) 06/28/20 17:00 Absolute Neuts (auto) 3.4 10^3/uL (1.7-8.2) 06/28/20 17:00 Absolute Lymphs (auto) 1.4 10^3/uL (0.5-4.7) 06/28/20 17:00 Absolute Monos (auto) 0.5 10^3/uL (0.1-1.4) 06/28/20 17:00 Absolute Eos (auto) 0.6 10^3/uL (0.0-0.6) 06/28/20 17:00 Absolute Basos (auto) 0.0 10^3/uL (0.0-0.2) 06/28/20 17:00 Seg Neutrophils % 57.8 % (42-78) 06/28/20 17:00 PT 13.5 SEC (11.4-15.4) 06/28/20 17:50 INR 1.01 06/28/20 17:50 INR (Anticoag Therapy) Cancelled 06/28/20 17:00 VBG pH 7.40 (7.30-7.42) 06/28/20 17:00 VBG pCO2 57.0 mmHg (35-63) 06/28/20 17:00 VBG HCO3 34.2 mmol/L (20-32) H 06/28/20 17:00 VBG Base Excess 7.1 mmol/L 06/28/20 17:00 Sodium 138.6 mmol/L (137-145) 06/29/20 04:35 Potassium 3.6 mmol/L (3.6-5.0) 06/29/20 04:35 Chloride 101 mmol/L (98-107) 06/29/20 04:35 Carbon Dioxide 30 mmol/L (22-30) 06/29/20 04:35 Anion Gap 8 (5-19) 06/29/20 04:35 BUN 18 mg/dL (7-20) 06/29/20 04:35 Creatinine 0.84 mg/dL (0.52-1.25) 06/29/20 04:35 Est GFR ( Amer) > 60 (>60) 06/29/20 04:35 Est GFR (MDRD) Non-Af > 60 (>60) 06/29/20 04:35 Glucose 151 mg/dL (75-110) H 06/29/20 04:35 Lactic Acid 1.0 mmol/L (0.7-2.1) 06/28/20 23:02 Calcium 8.8 mg/dL (8.4-10.2) 06/29/20 04:35 Phosphorus 4.2 mg/dL (2.5-4.5) 06/29/20 04:35 Magnesium 1.9 mg/dL (1.6-2.3) 06/29/20 04:35 Total Bilirubin 1.4 mg/dL (0.2-1.3) H 06/28/20 17:00 Direct Bilirubin 0.3 mg/dL (0.0-0.4) 06/28/20 17:00 Neonat Total Bilirubin Not Reportable 06/28/20 17:00 Neonat Direct Bilirubin Not Reportable 06/28/20 17:00 Neonat Indirect Bili Not Reportable 06/28/20 17:00 AST 32 U/L (17-59) 06/28/20 17:00 ALT 17 U/L (<50) 06/28/20 17:00 Alkaline Phosphatase 115 U/L (38-126) 06/28/20 17:00 Troponin I 0.022 ng/mL 06/28/20 17:00 NT-Pro-B Natriuret Pep 2960 pg/mL (<450) H 06/28/20 17:00 Total Protein 7.2 g/dL (6.3-8.2) 06/28/20 17:00 Albumin 3.8 g/dL (3.5-5.0) 06/28/20 17:00 TSH 3.58 uIU/mL (0.47-4.68) 06/28/20 17:00 Urine Color YELLOW 06/29/20 02:40 Urine Appearance CLEAR 06/29/20 02:40 Urine pH 7.0 (5.0-9.0) 06/29/20 02:40 Ur Specific [place] 1.009 06/29/20 02:40 Urine Protein NEGATIVE mg/dL (NEGATIVE) 06/29/20 02:40 Urine Glucose (UA) NEGATIVE mg/dL (NEGATIVE) 06/29/20 02:40 Urine Ketones NEGATIVE mg/dL (NEGATIVE) 06/29/20 02:40 Urine Blood SMALL (NEGATIVE) H 06/29/20 02:40 Urine Nitrite (Reflex) NEGATIVE (NEGATIVE) 06/29/20 02:40 Urine Bilirubin NEGATIVE (NEGATIVE) 06/29/20 02:40 Urine Urobilinogen NEGATIVE mg/dL (<2.0) 06/29/20 02:40 Leukocyte Esterase Rfl NEGATIVE (NEGATIVE) 06/29/20 02:40 Urine RBC (Auto) 2 /HPF 06/29/20 02:40 Urine Ascorbic Acid NEGATIVE (NEGATIVE) 06/29/20 02:40 COVID-19 Source See comment 06/28/20 20:30 COVID-19 (DALIA) Not Detected (Not Detect) 06/28/20 20:30 Influenza A (Rapid) NEGATIVE (NEGATIVE) 06/28/20 20:33 Influenza B (Rapid) NEGATIVE (NEGATIVE) 06/28/20 20:33 06/28/20 06/28/20 17:00 17:00 Troponin I 0.022 NT-Pro-B Natriuret Pep 2960 H Impressions: Chest CT 06/28/20 00:00 IMPRESSION: Atelectasis in the lung bases left greater than right without evidence to suggest consolidation Findings consistent with widespread osseous metastatic disease Chest X-Ray 06/28/20 16:53 IMPRESSION: In the appropriate clinical setting, findings are consistent with left lower lobe pneumonia. Head CT 06/28/20 16:54 IMPRESSION: No acute intracranial abnormalities. Mild microvascular and involutional changes. Incidental finding of chronic left maxillary sinusitis. EVIDENCE OF ACUTE STROKE: NO. Plan Health Concerns: follow-up with PCP regarding osseous finding on CT scan although this is suspected to be an old finding as patient is on as patient is on Zytiga which is used for the treatment of metastatic prostrate CA Time Spent: Greater than 30 Minutes Stroke Is this a Stroke Patient?: No Acute Heart Failure Is this a Heart Failure Patient?: No
[2020-07-01 16:52] VITALS: BP 121/54
== END 2020-07-01 17:40 | disposition home health service (06) | DRG 202 ==
LOC: ER 16:09 → EH 20:07 → 4N 22:16
PROVIDERS: ADMIT Emergency Medicine; ATTEND Internal Medicine
DX: J98.01 Acute bronchospasm (principal); L03.116 Cellulitis of left lower limb; C79.51 Secondary malignant neoplasm of bone; Z68.41 Body mass index [BMI] 40.0-44.9, adult; L89.151 Pressure ulcer of sacral region, stage 1; L89.610 Pressure ulcer of right heel, unstageable; I10 Essential (primary) hypertension; C61 Malignant neoplasm of prostate; I87.2 Venous insufficiency (chronic) (peripheral); E66.01 Morbid (severe) obesity due to excess calories; F41.8 Other specified anxiety disorders; Z60.2 Problems related to living alone; Z20.828 Contact with and (suspected) exposure to other viral communicable diseases
CPT/HCPCS: 36415; 70450; 71045; 71250; 80048; 80053; 81001; 82803; 83605; 83735; 83880; 84100; 84443; 84484; 85025; 85027; 85610; 87040; 87070; 87205; 87635; 87804; 93005; 93010; 93306; 94640; 94799; 99285; C9803; J1650; J1956; J2920; J3490